=== PATIENT | female | born 1995 | race Caucasian/White ===

== ENCOUNTER 2017-11-16 18:49 | Emergency (ER) | payer BC, MEDICAID ==
[2017-11-16 19:09] VITALS: BP 127/65
[2017-11-16] MEDS ORDERED: Sodium Chloride 0.9% 1,000 ML IV STA (19:42)
[2017-11-16] MEDS ORDERED: Sodium Chloride 0.9% 10 ML Syringe FLUSH PRN (19:42)
[2017-11-16] MEDS ORDERED: Metoclopramide 10 MG/2 ML SDV IVPUSH ONE (19:42)
[2017-11-16] MEDS ORDERED: Sodium Chloride 0.9% 1,000 ML IV ONE (20:51)
--- NOTE | 2017-11-16 22:49 | EDM.PDOC ---
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 She presents with nausea and vomiting. She has been having trouble with vomiting her whole and using zofran but the zofran was giving her migraines. Today it has been much worse. She has no fever, chills, cough, chest pain, shortness of breath, abdominal pain , cramping or bleeding. Her FHT was 159. Her doctor is Dr Calabrese. Onset: Today Duration: Hour(s): Severity: Moderate Improves with: Reports: None Worsens with: Reports: None Associated Symptoms: Reports: Nausea/Vomiting. Denies: Chest Pain, Cough, Fever /Chills, Headaches, Shortness of Breath Headache Pain Score (Numeric/FACES): 10 - Related Data Allergies Allergy/AdvReac Type Severity Reaction Status Date / Time No Known Allergies Allergy Verified 04/11/15 08:31 Home Meds: Home Meds . 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 Denies: Abdominal Pain : Reports: No Symptoms Musculoskeletal: Reports: No Symptoms ED EXAM, GI/ABD - Physical Exam Exam: See Below Exam Limited By: No Limitations General Appearance: Alert, No Apparent Distress Ears: Normal External Exam Nose: Normal Inspection Throat/Mouth: Other (Slightly dry mucus membranes) Head: Atraumatic, Normocephalic Neck: Normal Inspection Respiratory/Chest: No Respiratory Distress, Lungs Clear, Normal Breath Sounds Cardiovascular: Regular Rate, Rhythm, No Edema, No Murmur GI/Abdominal Exam: Soft, Non-Tender, Other (Gravid uterus) Back Exam: Normal Inspection Extremities: Normal Inspection Course - Vital Signs Last Recorded V/S: Last Vital Signs Temp 98.4 F 11/16/17 19:07 Pulse 88 11/16/17 19:07 Resp 20 11/16/17 19:07 BP 127/65 11/16/17 19:07 Pulse Ox 100 11/16/17 19:07 - Orders/Labs/Meds Orders: Active Orders 24 hr Category Date Time Status Peripheral IV Care [RC] . DIRECTED Care 11/16/17 19:43 Active Sodium Chloride 0.9% [Saline Flush] Med 11/16/17 19:42 Active 10 ml FLUSH ASDIRECTED PRN ED Antiemetic Medication Reflex [OM.PC] Stat Oth 11/16/17 19:43 Ordered Peripheral IV Insertion Adult [OM.PC] Stat Oth 11/16/17 19:42 Ordered Medication Orders Sodium Chloride (Saline Flush) 10 ml FLUSH ASDIRECTED PRN PRN Reason: Keep Vein Open Last Admin: 11/16/17 20:10 Dose: 10 ml Labs: Laboratory Tests 11/16/17 11/16/17 11/16/17 Range/Units 19:25 19:25 19:25 WBC 11.52 H (3.98-10.04) K/mm3 RBC 4.33 (3.98-5.22) M/mm3 Hgb 12.9 (11.2-15.7) gm/L Hct 38.3 (34.1-44.9) % MCV 88.5 (79.4-94.8) fl MCH 29.8 (25.6-32.2) pg MCHC 33.7 (32.2-35.5) g/dl RDW Std Deviation 41.5 (36.4-46.3) fL Plt Count 179 L (182-369) K/mm3 MPV 11.4 (9.4-12.3) fl Neut % (Auto) 73.7 H (34.0-71.1) % Lymph % (Auto) 19.4 (19.3-51.7) % Barnes % (Auto) 6.2 (4.7-12.5) % Eos % (Auto) 0.3 L (0.7-5.8) Baso % (Auto) 0.2 (0.1-1.2) % Neut # (Auto) 8.50 H (1.56-6.13) K/mm3 Lymph # (Auto) 2.23 (1.18-3.74) K/mm3 Barnes # (Auto) 0.71 H (0.24-0.36) K/mm3 Eos # (Auto) 0.04 (0.04-0.36) K/mm3 Baso # (Auto) 0.02 (0.01-0.08) K/mm3 Sodium 140 (136-145) mEq/L Potassium 3.6 (3.5-5.1) mEq/L Chloride 103 (98-107) mEq/L Carbon Dioxide 25 (21-32) mEq/L Anion Gap 15.6 H (5-15) BUN 10 (7-18) mg/dL Creatinine 0.8 (0.55-1.02) mg/dL Est Cr Clr Drug Dosing 117.23 mL/min Estimated GFR (MDRD) > 60 (>60) mL/min BUN/Creatinine Ratio 12.5 L (14-18) Glucose 88 (74-106) mg/dL Calcium 9.3 (8.5-10.1) mg/dL Total Bilirubin 0.4 (0.2-1.0) mg/dL AST 13 L (15-37) U/L ALT 9 L (14-59) U/L Alkaline Phosphatase 93 (46-116) U/L Total Protein 7.2 (6.4-8.2) g/dl Albumin 3.1 L (3.4-5.0) g/dl Globulin 4.1 gm/dL Albumin/Globulin Ratio 0.8 L (1-2) Lipase 199 (73-393) U/L Urine Color (Yellow) Urine Appearance (Clear) Urine pH (5.0-8.0) Ur Specific Whitney (1.005-1.030) Urine Protein (Negative) Urine Glucose (UA) (Negative) Urine Ketones (Negative) Urine Occult Blood (Negative) Urine Nitrite (Negative) Urine Bilirubin (Negative) Urine Urobilinogen (0.2-1.0) Ur Leukocyte Esterase (Negative) Urine RBC (0-5) /hpf Urine WBC (0-5) /hpf Ur Epithelial Cells (0-5) /hpf Urine Bacteria (FEW) /hpf Urine Mucus (FEW) /hpf 11/16/17 Range/Units 19:30 WBC (3.98-10.04) K/mm3 RBC (3.98-5.22) M/mm3 Hgb (11.2-15.7) gm/L Hct (34.1-44.9) % MCV (79.4-94.8) fl MCH (25.6-32.2) pg MCHC (32.2-35.5) g/dl RDW Std Deviation (36.4-46.3) fL Plt Count (182-369) K/mm3 MPV (9.4-12.3) fl Neut % (Auto) (34.0-71.1) % Lymph % (Auto) (19.3-51.7) % Barnes % (Auto) (4.7-12.5) % Eos % (Auto) (0.7-5.8) Baso % (Auto) (0.1-1.2) % Neut # (Auto) (1.56-6.13) K/mm3 Lymph # (Auto) (1.18-3.74) K/mm3 Barnes # (Auto) (0.24-0.36) K/mm3 Eos # (Auto) (0.04-0.36) K/mm3 Baso # (Auto) (0.01-0.08) K/mm3 Sodium (136-145) mEq/L Potassium (3.5-5.1) mEq/L Chloride (98-107) mEq/L Carbon Dioxide (21-32) mEq/L Anion Gap (5-15) BUN (7-18) mg/dL Creatinine (0.55-1.02) mg/dL Est Cr Clr Drug Dosing mL/min Estimated GFR (MDRD) (>60) mL/min BUN/Creatinine Ratio (14-18) Glucose (74-106) mg/dL Calcium (8.5-10.1) mg/dL Total Bilirubin (0.2-1.0) mg/dL AST (15-37) U/L ALT (14-59) U/L Alkaline Phosphatase (46-116) U/L Total Protein (6.4-8.2) g/dl Albumin (3.4-5.0) g/dl Globulin gm/dL Albumin/Globulin Ratio (1-2) Lipase (73-393) U/L Urine Color Yellow (Yellow) Urine Appearance Clear (Clear) Urine pH 6.0 (5.0-8.0) Ur Specific Whitney > or = 1.030 (1.005-1.030) Urine Protein 2+ H (Negative) Urine Glucose (UA) Negative (Negative) Urine Ketones 3+ H (Negative) Urine Occult Blood Negative (Negative) Urine Nitrite Negative (Negative) Urine Bilirubin 1+ H (Negative) Urine Urobilinogen 1.0 (0.2-1.0) Ur Leukocyte Esterase Trace H (Negative) Urine RBC 0-5 (0-5) /hpf Urine WBC 0-5 (0-5) /hpf Ur Epithelial Cells 10-20 H (0-5) /hpf Urine Bacteria Moderate H (FEW) /hpf Urine Mucus Many H (FEW) /hpf Meds: Medications Generic Name Dose Route Start Last Admin Trade Name Freq PRN Reason Stop Dose Admin Sodium Chloride 10 ml 11/16/17 19:42 11/16/17 20:10 Saline Flush FLUSH 10 ml ASDIRECTED PRN Administration Keep Vein Open Discontinued Medications Generic Name Dose Route Start Last Admin Trade Name Freq PRN Reason Stop Dose Admin Sodium Chloride 1,000 mls @ 1,000 mls/hr 11/16/17 19:42 11/16/17 20:10 Normal Saline IV 11/16/17 20:41 1,000 mls/hr .BOLUS STA Administration Sodium Chloride 1,000 mls @ 1,000 mls/hr 11/16/17 20:51 11/16/17 21:26 Normal Saline IV 11/16/17 21:50 1,000 mls/hr ONETIME ONE Administration Metoclopramide HCl 10 mg 11/16/17 19:42 11/16/17 20:10 Reglan IVPUSH 11/16/17 19:43 10 mg ONETIME ONE Administration - Re-Assessments/Exams Free Text/Narrative Re-Assessment/Exam: 11/16/17 22:51 I ordered an IV NS 2L bolus, reglan 10mg IV, labs and UA. 11/16/17 22:52 Her WBC was elevated slightly at 11.52. Her anion gap was elevated at 15.6. Her UA showed some protein and ketones but no sign of infection. She feels much better. I will discharge her home with a prescription for the generic dyclegis. Departure - Departure Time of Disposition: 22:55 Disposition: Home, Self-Care 01 Condition: Good Clinical Impression: Qualifiers: Weeks of gestation: 26 weeks Qualified Code(s): Z3A.26 - 26 weeks gestation of Nausea & vomiting Qualifiers: Vomiting type: unspecified Vomiting Intractability: non-intractable Qualified Code(s): R11.2 - Nausea with vomiting, unspecified - Discharge Information Referrals: Sherrie Moore MD [Primary Care Provider] - 1 Week Forms: ED Department Discharge, ED Return to Work/School Form Additional Instructions: Go home and rest. Drink plenty of fluids. Go to [facility] pharmacy and get the medicine prescribed for the nausea and vomiting. Please return if you are worse. - My Orders Last 24 Hours: My Active Orders 11/16/17 19:42 Sodium Chloride 0.9% [Saline Flush] 10 ml FLUSH ASDIRECTED PRN Peripheral IV Insertion Adult [OM.PC] Stat 11/16/17 19:43 Peripheral IV Care [RC] . DIRECTED ED Antiemetic Medication Reflex [OM.PC] Stat - Assessment/Plan Last 24 Hours: My Active Orders 11/16/17 19:42 Sodium Chloride 0.9% [Saline Flush] 10 ml FLUSH ASDIRECTED PRN Peripheral IV Insertion Adult [OM.PC] Stat 11/16/17 19:43 Peripheral IV Care [RC] . DIRECTED ED Antiemetic Medication Reflex [OM.PC] Stat
== END 2017-11-16 23:05 | disposition home or self-care (01) ==
LOC: JD.ED 18:49
DX: O21.9 Vomiting of pregnancy, unspecified (principal); Z3A.26 26 weeks gestation of pregnancy
CPT/HCPCS: 36415; 80053; 81001; 83690; 85025; 96361; 96374; 99284; J2765; J7040; J7050

== ENCOUNTER 2017-11-18 09:26 | Observation (INO) | payer MEDICAID ==
[2017-11-18] MEDS ORDERED: Ondansetron 4 MG Tab.DIS PO PRN (09:53)
[2017-11-18] MEDS ORDERED: Sodium Chloride 0.9% 1,000 ML IV SCH (10:00)
[2017-11-18] MEDS ORDERED: Sodium Chloride 0.9% 500 ML IV ONE (11:12)
[2017-11-18] MEDS ORDERED: Promethazine 25 MG/ML SDV IM SCH (11:15)
[2017-11-18] MEDS ORDERED: POTASSIUM CHLORIDE IV SCH (14:30)
[2017-11-18] MEDS ORDERED: LACTATED RINGERS IV SCH (14:30)
[2017-11-18] MEDS ORDERED: THIAMINE IV SCH (14:30)
[2017-11-18] MEDS ORDERED: Promethazine 25 MG/ML SDV IM ONE (16:35)
--- NOTE | 2017-11-18 18:07 | PCM.SN ---
- Free Text/Narrative Note: Subjective:22 yo G1 at 27 weeks gestation evaluated on labor and delivery for nausea and emesis. recurrent for the last 48 hours, unable to hold food down. Was evaluated in the ER 2 days ago. Labs significant for dehydration. no evidence of infection. no signs of labor. reports normal movement. no leakage of fluid. At time of evaluation pt has received 2 liters of normal saline. 4 mg Zofran ODT and Phenergan 25 mg IM x 1. she has had greater than 2 hours without emesisPt has been able to urinate since arrival on the floor and notes she has the urge to urinate at this time. Objective: Vital signs stable. mucous membranes moist, no skin tenting, normal capillary refill. no lower extremity edema. Labs were reviewed including CBC, BMP, Magneisum, Phosphate and urinalysis. Assessment: 1.hyperemesis gravidarum, 2.hypokalemia 3. hypovolemia Plan:Pt is currently receiving 1 liter of LR with thiamine 100 mg and KCL 20 meq. continue IV hydration for 1-2 more hours. repeat phenergan dose now. If continues with no emesis and continues to have stable vital signs will discharge to home tonight with follow up in the clinic within 48 hours. Phenergan prescription sent to her pharmacy. return to clinic or Labor floor sooner if emesis returns. BRAT diet when hunger returns.
[2017-11-18] MEDS ORDERED: Famotidine 20 MG/2 ML SDV IV PRN (19:29)
[2017-11-18] MEDS ORDERED: Metoclopramide 10 MG/2 ML SDV IVPUSH PRN (19:29)
[2017-11-18] MEDS ORDERED: Ondansetron 4 MG/2 ML SDV IV SCH (19:30)
[2017-11-18] MEDS ORDERED: diphenhydrAMINE 50 MG/ML SDV IVPUSH ONE (19:42)
[2017-11-18] MEDS ORDERED: ONDANSETRON IV SCH (20:00)
[2017-11-18] MEDS ORDERED: SODIUM CHLORIDE 0.9% IV SCH (20:00)
[2017-11-18] MEDS: Dextrose 5%-Lactated Ringers 1,000 ML IV SCH (20:44)
[2017-11-19] MEDS: Dextrose 5%-Lactated Ringers 1,000 ML IV SCH (02:26)
--- NOTE | 2017-11-19 07:30 | PCM.LDHP ---
L&D History of Present Illness - General Date of Service: 11/18/17 Admit Problem/Dx: Patient Status Order with Admit Dx/Problem 11/18/17 09:53 Patient Status [ADT] Routine 11/18/17 19:30 Patient Status [ADT] Routine Admission Diagnosis/Problem Admission Diagnosis/Problem Source of Information: Patient, Family, Provider, RN Notes Reviewed - History of Present Illness Introduction:: 22 year old female at 27w0 here after 3 day course of fairly intractable nausea and vomiting. She was in the ER Friday and had vomited 50-60 times that day. Improved somewhat in terms of frequency of vomiting but did was not able to eat anything. She presented this morning to labor and delivery and initially was improving somewhat after fluid management by Dr. Thacker and IV nausea medication but then began vomiting again. Reports no diarrhea. No decrease in movement or contractions. Improves with: Reports: Rest - Related Data Allergies/Adverse Reactions: Allergies Allergy/AdvReac Type Severity Reaction Status Date / Time No Known Allergies Allergy Verified 04/11/15 08:31 Home Medications: Home Meds . 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 Denies: Abdominal Pain, Anorexia, Diarrhea, Decreased Appetite Genitourinary: Reports: No Symptoms Musculoskeletal: Reports: No Symptoms Skin: Reports: No Symptoms Psychiatric: Reports: No Symptoms Neurological: Reports: No Symptoms Hematologic/Lymphatic: Reports: No Symptoms Immunologic: Reports: No Symptoms L&D Exam - Exam Exam: See Below - Vital Signs Vital Signs: Last Vital Signs Temp 36.6 C 11/18/17 19:30 Pulse 102 H 05/22/18 17:32 Resp 18 11/18/17 09:53 BP 94/42 L 11/18/17 14:00 Pulse Ox Weight: 87.543 kg - OB Specific Movement: Active Heart Tones: Present Presentation: Vertex - Bray Score Bray Score Cervix Position: Midposition Bray Score Consistency: Firm Bray Score Effacement: 0-30% Bray Score Dilation: Closed Bray Score Infant's Station: -3 Bray Score Total: 1 - Exam General: Other (resting comfortably) HEENT: Conjunctiva Clear, EACs Clear, EOMI, Hearing Intact, Mucosa Moist & [place] , Posterior Pharynx Clear, Other (flushed) Neck: Supple, Trachea Midline Lungs: Normal Respiratory Effort Cardiovascular: Regular Rate, Regular Rhythm GI/Abdominal Exam: Normal Bowel Sounds, Soft, Non-Tender, No Organomegaly, No Distention, No Abnormal Bruit, Other (gravid, no fundal tenderness) Rectal Exam: Normal Exam, Normal Rectal Tone Genitourinary: Normal external exam, Normal bimanual exam, Other Extremities: Normal Inspection, Normal Range of Motion, Non-Tender, No Pedal Edema, Normal Capillary Refill Skin: Warm, Dry, Intact, Other (flushed face) Psychiatric: Alert, Normal Affect, Normal Mood - Patient Data Lab Results Last 24 hrs: Laboratory Results - last 24 hr 11/18/17 11/18/17 11/18/17 Range/Units 13:34 13:34 13:34 WBC 11.99 H (3.98-10.04) K/mm3 RBC 3.89 L (3.98-5.22) M/mm3 Hgb 11.7 (11.2-15.7) gm/L Hct 34.8 (34.1-44.9) % MCV 89.5 (79.4-94.8) fl MCH 30.1 (25.6-32.2) pg MCHC 33.6 (32.2-35.5) g/dl RDW Std Deviation 41.4 (36.4-46.3) fL Plt Count 179 L (182-369) K/mm3 MPV 11.2 (9.4-12.3) fl Neut % (Auto) 77.9 H (34.0-71.1) % Lymph % (Auto) 15.3 L (19.3-51.7) % [place] % (Auto) 6.1 (4.7-12.5) % Eos % (Auto) 0.3 L (0.7-5.8) Baso % (Auto) 0.2 (0.1-1.2) % Neut # (Auto) 9.36 H (1.56-6.13) K/mm3 Lymph # (Auto) 1.83 (1.18-3.74) K/mm3 [place] # (Auto) 0.73 H (0.24-0.36) K/mm3 Eos # (Auto) 0.03 L (0.04-0.36) K/mm3 Baso # (Auto) 0.02 (0.01-0.08) K/mm3 Sodium 139 (136-145) mEq/L Potassium 3.3 L (3.5-5.1) mEq/L Chloride 105 (98-107) mEq/L Carbon Dioxide 21 (21-32) mEq/L Anion Gap 16.3 H (5-15) BUN 10 (7-18) mg/dL Creatinine 0.8 (0.55-1.02) mg/dL Est Cr Clr Drug Dosing 117.23 mL/min Estimated GFR (MDRD) > 60 (>60) mL/min BUN/Creatinine Ratio 12.5 L (14-18) Glucose 80 (74-106) mg/dL Calcium 8.7 (8.5-10.1) mg/dL Phosphorus 3.5 (2.6-4.7) mg/dL Magnesium 1.6 L (1.8-2.4) mg/dl Total Bilirubin (0.2-1.0) mg/dL AST (15-37) U/L ALT (14-59) U/L Alkaline Phosphatase (46-116) U/L Total Protein (6.4-8.2) g/dl Albumin (3.4-5.0) g/dl Globulin gm/dL Albumin/Globulin Ratio (1-2) TSH 3rd Generation (0.516-4.13) uIU/mL Urine Color (Yellow) Urine Appearance (Clear) Urine pH (5.0-8.0) Ur Specific Till[place] (1.005-1.030) Urine Protein (Negative) Urine Glucose (UA) (Negative) Urine Ketones (Negative) Urine Occult Blood (Negative) Urine Nitrite (Negative) Urine Bilirubin (Negative) Urine Urobilinogen (0.2-1.0) Ur Leukocyte Esterase (Negative) Urine RBC (0-5) /hpf Urine WBC (0-5) /hpf Ur Epithelial Cells (0-5) /hpf Urine Bacteria (FEW) /hpf Urine Mucus (FEW) /hpf Urine Opiates Screen (NEGATIVE) Ur Buprenorphine Scrn (NEGATIVE) Ur Oxycodone Screen (NEGATIVE) Urine Methadone Screen (NEGATIVE) Ur Propoxyphene Screen (NEGATIVE) Ur Barbiturates Screen (NEGATIVE) Ur Tricyclics Screen (NEGATIVE) Ur Phencyclidine Scrn (NEGATIVE) Ur Amphetamine Screen (NEGATIVE) U Methamphetamines Scrn (NEGATIVE) U Benzodiazepines Scrn (NEGATIVE) U Cocaine Metab Screen (NEGATIVE) U Marijuana (THC) Screen (NEGATIVE) 11/18/17 11/18/17 11/19/17 Range/Units 13:50 13:50 06:10 WBC 7.88 (3.98-10.04) K/mm3 RBC 3.33 L (3.98-5.22) M/mm3 Hgb 10.0 L (11.2-15.7) gm/L Hct 29.7 L (34.1-44.9) % MCV 89.2 (79.4-94.8) fl MCH 30.0 (25.6-32.2) pg MCHC 33.7 (32.2-35.5) g/dl RDW Std Deviation 41.8 (36.4-46.3) fL Plt Count 159 L (182-369) K/mm3 MPV 11.4 (9.4-12.3) fl Neut % (Auto) 53.3 (34.0-71.1) % Lymph % (Auto) 34.6 (19.3-51.7) % [place] % (Auto) 9.0 (4.7-12.5) % Eos % (Auto) 2.4 (0.7-5.8) Baso % (Auto) 0.4 (0.1-1.2) % Neut # (Auto) 4.20 (1.56-6.13) K/mm3 Lymph # (Auto) 2.73 (1.18-3.74) K/mm3 [place] # (Auto) 0.71 H (0.24-0.36) K/mm3 Eos # (Auto) 0.19 (0.04-0.36) K/mm3 Baso # (Auto) 0.03 (0.01-0.08) K/mm3 Sodium (136-145) mEq/L Potassium (3.5-5.1) mEq/L Chloride (98-107) mEq/L Carbon Dioxide (21-32) mEq/L Anion Gap (5-15) BUN (7-18) mg/dL Creatinine (0.55-1.02) mg/dL Est Cr Clr Drug Dosing mL/min Estimated GFR (MDRD) (>60) mL/min BUN/Creatinine Ratio (14-18) Glucose (74-106) mg/dL Calcium (8.5-10.1) mg/dL Phosphorus (2.6-4.7) mg/dL Magnesium (1.8-2.4) mg/dl Total Bilirubin (0.2-1.0) mg/dL AST (15-37) U/L ALT (14-59) U/L Alkaline Phosphatase (46-116) U/L Total Protein (6.4-8.2) g/dl Albumin (3.4-5.0) g/dl Globulin gm/dL Albumin/Globulin Ratio (1-2) TSH 3rd Generation (0.516-4.13) uIU/mL Urine Color Blanca H (Yellow) Urine Appearance Clear (Clear) Urine pH 6.0 (5.0-8.0) Ur Specific [place] > or = 1.030 (1.005-1.030) Urine Protein 1+ H (Negative) Urine Glucose (UA) Negative (Negative) Urine Ketones 3+ H (Negative) Urine Occult Blood Negative (Negative) Urine Nitrite Negative (Negative) Urine Bilirubin 1+ H (Negative) Urine Urobilinogen 1.0 (0.2-1.0) Ur Leukocyte Esterase Negative (Negative) Urine RBC Not seen (0-5) /hpf Urine WBC 0-5 (0-5) /hpf Ur Epithelial Cells 0-5 (0-5) /hpf Urine Bacteria Rare (FEW) /hpf Urine Mucus Not seen (FEW) /hpf Urine Opiates Screen Negative (NEGATIVE) Ur Buprenorphine Scrn Negative (NEGATIVE) Ur Oxycodone Screen Negative (NEGATIVE) Urine Methadone Screen Negative (NEGATIVE) Ur Propoxyphene Screen Negative (NEGATIVE) Ur Barbiturates Screen Negative (NEGATIVE) Ur Tricyclics Screen Negative (NEGATIVE) Ur Phencyclidine Scrn Negative (NEGATIVE) Ur Amphetamine Screen Negative (NEGATIVE) U Methamphetamines Scrn Negative (NEGATIVE) U Benzodiazepines Scrn Negative (NEGATIVE) U Cocaine Metab Screen Negative (NEGATIVE) U Marijuana (THC) Screen Negative (NEGATIVE) 11/19/17 Range/Units 06:10 WBC (3.98-10.04) K/mm3 RBC (3.98-5.22) M/mm3 Hgb (11.2-15.7) gm/L Hct (34.1-44.9) % MCV (79.4-94.8) fl MCH (25.6-32.2) pg MCHC (32.2-35.5) g/dl RDW Std Deviation (36.4-46.3) fL Plt Count (182-369) K/mm3 MPV (9.4-12.3) fl Neut % (Auto) (34.0-71.1) % Lymph % (Auto) (19.3-51.7) % [place] % (Auto) (4.7-12.5) % Eos % (Auto) (0.7-5.8) Baso % (Auto) (0.1-1.2) % Neut # (Auto) (1.56-6.13) K/mm3 Lymph # (Auto) (1.18-3.74) K/mm3 [place] # (Auto) (0.24-0.36) K/mm3 Eos # (Auto) (0.04-0.36) K/mm3 Baso # (Auto) (0.01-0.08) K/mm3 Sodium 137 (136-145) mEq/L Potassium 3.1 L (3.5-5.1) mEq/L Chloride 107 (98-107) mEq/L Carbon Dioxide 24 (21-32) mEq/L Anion Gap 9.1 (5-15) BUN 7 (7-18) mg/dL Creatinine 0.7 (0.55-1.02) mg/dL Est Cr Clr Drug Dosing 133.98 mL/min Estimated GFR (MDRD) > 60 (>60) mL/min BUN/Creatinine Ratio 10.0 L (14-18) Glucose 138 H (74-106) mg/dL Calcium 7.7 L (8.5-10.1) mg/dL Phosphorus (2.6-4.7) mg/dL Magnesium (1.8-2.4) mg/dl Total Bilirubin 0.4 (0.2-1.0) mg/dL AST 12 L (15-37) U/L ALT 18 (14-59) U/L Alkaline Phosphatase 64 (46-116) U/L Total Protein 4.9 L (6.4-8.2) g/dl Albumin 2.1 L (3.4-5.0) g/dl Globulin 2.8 gm/dL Albumin/Globulin Ratio 0.8 L (1-2) TSH 3rd Generation 2.959 (0.516-4.13) uIU/mL Urine Color (Yellow) Urine Appearance (Clear) Urine pH (5.0-8.0) Ur Specific [place] (1.005-1.030) Urine Protein (Negative) Urine Glucose (UA) (Negative) Urine Ketones (Negative) Urine Occult Blood (Negative) Urine Nitrite (Negative) Urine Bilirubin (Negative) Urine Urobilinogen (0.2-1.0) Ur Leukocyte Esterase (Negative) Urine RBC (0-5) /hpf Urine WBC (0-5) /hpf Ur Epithelial Cells (0-5) /hpf Urine Bacteria (FEW) /hpf Urine Mucus (FEW) /hpf Urine Opiates Screen (NEGATIVE) Ur Buprenorphine Scrn (NEGATIVE) Ur Oxycodone Screen (NEGATIVE) Urine Methadone Screen (NEGATIVE) Ur Propoxyphene Screen (NEGATIVE) Ur Barbiturates Screen (NEGATIVE) Ur Tricyclics Screen (NEGATIVE) Ur Phencyclidine Scrn (NEGATIVE) Ur Amphetamine Screen (NEGATIVE) U Methamphetamines Scrn (NEGATIVE) U Benzodiazepines Scrn (NEGATIVE) U Cocaine Metab Screen (NEGATIVE) U Marijuana (THC) Screen (NEGATIVE) Result Diagrams: 11/19/17 06:10 11/19/17 06:10 Problem List Initiated/Reviewed/Updated: Yes Orders Last 24hrs: Active Orders 24 hr Category Date Time Status Patient Status [ADT] Routine ADT 11/18/17 09:53 Active Patient Status [ADT] Routine ADT 11/18/17 19:30 Active Intake and Output [RC] Q2H Care 11/18/17 19:30 Active Notify Provider [RC] PRN Care 11/18/17 19:30 Active Up ad Erin [RC] ASDIRECTED Care 11/18/17 19:29 Active Vital Signs [RC] PER UNIT ROUTINE Care 11/18/17 09:53 Active Vital Signs [RC] PER UNIT ROUTINE Care 11/18/17 19:30 Active Regular Diet [DIET] Diet 11/18/17 Dinner Active DRUG SCREEN, URINE [URCHEM] Routine Lab 11/18/17 13:50 Ordered UA W/MICROSCOPIC [URIN] Routine Lab 11/18/17 13:50 Ordered Dextrose 5%-Lactated Ringers 1,000 ml Med 11/18/17 19:30 Active IV ASDIRECTED Famotidine [Pepcid] Med 11/18/17 19:29 Active 20 mg IV Q12H PRN Metoclopramide [Reglan] Med 11/18/17 19:29 Active 5 mg IVPUSH Q6H PRN Ondansetron [Zofran ODT] Med 11/18/17 09:53 Active 4 mg PO Q4H PRN Ondansetron [Zofran] 10 mg Med 11/18/17 20:00 Active Sodium Chloride 0.9% [Normal Saline] 495 ml IV ASDIRECTED Potassium Chloride 20 meq Med 11/18/17 14:30 Active Thiamine [Vitamin B-1] 100 mg Lactated Ringers [Ringers, Lactated] 1,000 ml IV ASDIRECTED Promethazine [Phenergan] Med 11/18/17 11:15 Active 25 mg IM .ONETIME Resuscitation Status Routine Resus Stat 11/18/17 09:53 Ordered Medication Orders Famotidine (Pepcid) 20 mg IV Q12H PRN PRN Reason: Heartburn Potassium Chloride 20 meq/Thiamine HCl 100 mg/ Lactated Ringer's 1,011 mls @ 250 mls/hr IV ASDIRECTED [facility] Last Admin: 11/18/17 14:48 Dose: 250 mls/hr Dextrose/Lactated Ringer's (Dextrose 5%-Lactated Ringers) 1,000 mls @ 125 mls/ hr IV ASDIRECTED [facility] Last Admin: 11/19/17 02:26 Dose: 125 mls/hr Infusion: 11/19/17 02:26 Dose: 125 mls/hr Admin: 11/18/17 20:44 Dose: 125 mls/hr Ondansetron HCl 10 mg/ Sodium (Chloride) 500 mls @ 50 mls/hr IV ASDIRECTED [facility] Last Admin: 11/18/17 20:37 Dose: 50 mls/hr Metoclopramide HCl (Reglan) 5 mg IVPUSH Q6H PRN PRN Reason: Nausea/Vomiting Ondansetron HCl (Zofran Odt) 4 mg PO Q4H PRN PRN Reason: Nausea/Vomiting Last Admin: 11/18/17 10:20 Dose: 4 mg Promethazine HCl (Phenergan) 25 mg IM .ONETIME [facility] Last Admin: 11/18/17 11:37 Dose: 25 mg Assessment/Plan Comment:: Intractable nausea and vomiting. Improving somewhat in the last 20-30 minutes or so with rest. Still not able to tolerate po's. Plan: FEN: Do not encourage PO intake but she is free to eat/drink if it seems to her she would do ok with it. Recheck electrolytes in the morning. IV fluids to continue over night. GI: Zofran drip 1mg/hr. Pharmacy contacted to discuss mixing. Reglan prn. Benadryl for sleep and nausea at hs. Pepcid IV now. Hope move toward discharge tomorrow if increased ability to tolerate po's.
[2017-11-19] MEDS ORDERED: Lactated Ringers 1,000 ML ONE (07:57)
[2017-11-19] MEDS: Potassium Chloride 10 MEQ in Premix Bag 1 BAG IV SCH ×6 (08:14→14:05)
[2017-11-19] MEDS ORDERED: Lactated Ringers 1,000 ML IV SCH (08:15)
[2017-11-19 11:58] VITALS: BP 91/48
--- NOTE | 2017-11-25 06:24 | PCM.DCSUM1 ---
Discharge Summary - Hospital Course Brief History: Admitted with intractable nausea and vomiting - Discharge Data Discharge Date: 11/19/17 Discharge Disposition: Home, Self-Care 01 Condition: Good - Patient Summary/Data Hospital Course: Zofran drip and benadryl over night. Rested well. Awoke feeling better and gradually able to tolerate po's. - Patient Instructions Diet: Regular Diet as Tolerated Activity: As Tolerated Activity, Other: follow up in clinic next week Driving: May Drive Today Showering/Bathing: May Shower Notify Provider of: Fever, Increased Pain, Nausea and/or Vomiting - Discharge Plan Home Medications: Home Meds . [No Known Home Meds] 04/11/15 [History] Patient Handouts: Third Trimester of , [id number], Eating Plan for Hyperemesis Gravidarum, Hyperemesis Gravidarum, Second Trimester of , [id number] Referrals: Sherrie Moore MD [Primary Care Provider] - - Discharge Summary/Plan Comment DC Time >30 min.: No - General Info Date of Service: 11/19/17 Functional Status: Reports: Pain Controlled - Review of Systems General: Reports: No Symptoms HEENT: Reports: No Symptoms Pulmonary: Reports: No Symptoms Cardiovascular: Reports: No Symptoms Gastrointestinal: Reports: No Symptoms Genitourinary: Reports: No Symptoms Musculoskeletal: Reports: No Symptoms Skin: Reports: No Symptoms Neurological: Reports: No Symptoms Psychiatric: Reports: No Symptoms - Patient Data Vitals - Most Recent: Last Vital Signs Temp 36.2 C 11/19/17 11:56 Pulse 74 11/19/17 11:56 Resp 18 11/19/17 11:56 BP 91/48 L 11/19/17 11:56 Pulse Ox 100 11/19/17 11:56 Weight - Most Recent: 87.543 kg Med Orders - Current: Current Medications Discontinued Medications Diphenhydramine HCl (Benadryl) 50 mg IVPUSH ONETIME ONE Stop: 11/18/17 19:43 Last Admin: 11/18/17 20:16 Dose: 50 mg Famotidine (Pepcid) 20 mg IV Q12H PRN PRN Reason: Heartburn Sodium Chloride (Normal Saline) 1,000 mls @ 999 mls/hr IV .BOLUS PRERNA Stop: 11/18/17 12:00 Last Admin: 11/18/17 10:20 Dose: 999 mls/hr Sodium Chloride (Normal Saline) 500 mls @ 500 mls/hr IV .BOLUS ONE Stop: 11/18/17 12:11 Last Admin: 11/18/17 11:37 Dose: 500 mls/hr Potassium Chloride 20 meq/Thiamine HCl 100 mg/ Lactated Ringer's 1,011 mls @ 250 mls/hr IV ASDIRECTED [facility] Last Admin: 11/18/17 14:48 Dose: 250 mls/hr Dextrose/Lactated Ringer's (Dextrose 5%-Lactated Ringers) 1,000 mls @ 125 mls/ hr IV ASDIRECTED [facility] Last Admin: 11/19/17 02:26 Dose: 125 mls/hr Ondansetron HCl 10 mg/ Sodium (Chloride) 500 mls @ 50 mls/hr IV ASDIRECTED [facility] Last Admin: 11/18/17 20:37 Dose: 50 mls/hr Potassium Chloride 10 meq/ (Premix) 100 mls @ 100 mls/hr IV Q1H PRERNA Stop: 11/19/17 13:59 Last Admin: 11/19/17 14:05 Dose: 100 mls/hr Lactated Ringer's (Ringers, Lactated) Confirm Administered Dose 1,000 mls @ as directed .ROUTE .STK-MED ONE Stop: 11/19/17 07:58 Last Admin: 11/19/17 08:26 Dose: Not Given Lactated Ringer's (Ringers, Lactated) 1,000 mls @ 150 mls/hr IV ASDIRECTED [facility] Last Admin: 11/19/17 08:22 Dose: 150 mls/hr Metoclopramide HCl (Reglan) 5 mg IVPUSH Q6H PRN PRN Reason: Nausea/Vomiting Ondansetron HCl (Zofran Odt) 4 mg PO Q4H PRN PRN Reason: Nausea/Vomiting Last Admin: 11/18/17 10:20 Dose: 4 mg Potassium Chloride (Pharmacy To Dose - Potassium Replacement) 0 dose .XX ASDIRECTED PRN PRN Reason: RX TO WATCH K LEVELS Promethazine HCl (Phenergan) 25 mg IM .ONETIME [facility] Last Admin: 11/18/17 11:37 Dose: 25 mg Promethazine HCl (Phenergan) 25 mg IM ONETIME ONE Stop: 11/18/17 16:36 Last Admin: 11/18/17 16:48 Dose: 25 mg - Exam General: Reports: Alert, Oriented HEENT: Reports: Pupils Equal, Pupils Reactive, EOMI, Mucous Membr. Moist/[place] Neck: Reports: Supple Lungs: Reports: Clear to Auscultation, Normal Respiratory Effort Cardiovascular: Reports: Regular Rate, Regular Rhythm GI/Abdominal Exam: Normal Bowel Sounds, Soft, Non-Tender, No Organomegaly, No Distention, No Abnormal Bruit, No Mass, Pelvis Stable, Other (soft, non-tender) (Female) Exam: Normal External Exam, Normal Bimanual Exam, Other (cervix closed) Back Exam: Reports: Normal Inspection, Full Range of Motion Extremities: Normal Inspection, Normal Range of Motion, Non-Tender, No Pedal Edema, Normal Capillary Refill Skin: Reports: Warm, Dry, Intact Wound/Incisions: Reports: Healing Well Neurological: Reports: No New Focal Deficit Psy/Mental Status: Reports: Alert, Normal Affect, Normal Mood
== END 2017-11-19 15:22 | disposition home or self-care (01) ==
LOC: JD.OB 09:26 → JD.OBCHECK 09:26 → JD.OB 19:30 → JD.OBCHECK 19:30 → JD.OB 19:31
PROVIDERS: ADMIT Obstetrics & Gynecology; ATTEND Obstetrics & Gynecology
DX: O21.0 Mild hyperemesis gravidarum (principal); E86.0 Dehydration; E87.6 Hypokalemia; E86.1 Hypovolemia; Z3A.27 27 weeks gestation of pregnancy
CPT/HCPCS: 36415; 80048; 80053; 80306; 81001; 83735; 84100; 84443; 85025; 96360; 96361; 96365; 96366; 96372; 96374; 96375; A9270; G0378; J1200; J2405; J2550; J3411; J3480; J7040; J7042; J7120

== ENCOUNTER 2018-02-15 18:38 | Inpatient (IN) | payer OTHER, MEDICAID ==
[2018-02-15] MEDS ORDERED: Ondansetron 4 MG/2 ML SDV IVPUSH PRN ×2 (19:06→19:53)
[2018-02-15] MEDS ORDERED: Nalbuphine 20 MG/ML 1 ML Syringe IVPUSH PRN (19:06)
[2018-02-15] MEDS ORDERED: Sodium Chloride 0.9% 10 ML Syringe FLUSH PRN (19:06)
[2018-02-15] MEDS ORDERED: Oxytocin/Lactated Ringers 10 UNIT/1,000 ML BAG IV SCH (19:15)
--- NOTE | 2018-02-15 19:30 | PCM.LDHP ---
L&D History of Present Illness - General Date of Service: 02/15/18 Admit Problem/Dx: Patient Status Order with Admit Dx/Problem 02/15/18 19:09 Patient Status [ADT] Routine Admission Diagnosis/Problem Admission Diagnosis/Problem Source of Information: Patient History Limitations: Reports: No Limitations - History of Present Illness Introduction:: 22 year old at 39w5 here in active labor. PNC with Dr. Akers complicated only by hyperemesis. 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 Social & Family History - Caffeine Use Caffeine Use: Reports: Soda H&P Review of Systems - Review of Systems: Review Of Systems: See Below General: Reports: No Symptoms HEENT: Reports: No Symptoms Pulmonary: Reports: No Symptoms Cardiovascular: Reports: No Symptoms Gastrointestinal: Reports: No Symptoms Genitourinary: Reports: No Symptoms Musculoskeletal: Reports: No Symptoms Skin: Reports: No Symptoms Psychiatric: Reports: No Symptoms Neurological: Reports: No Symptoms Hematologic/Lymphatic: Reports: No Symptoms Immunologic: Reports: No Symptoms L&D Exam - Exam Exam: See Below - Vital Signs Vital Signs: Last Vital Signs Temp 37.5 C 02/15/18 18:52 Pulse 90 02/15/18 18:52 Resp 18 02/15/18 18:52 BP 130/74 02/15/18 18:52 Pulse Ox Weight: 100.788 kg - OB Specific Contraction Intensity: Moderate to Strong Movement: Active Heart Tones: Present Heart Rate (FHR) Variability: Moderate (6-25 bmp) Presentation: Vertex - Bray Score Bray Score Cervix Position: Anterior Bray Score Consistency: Soft Bray Score Effacement: >80% Bray Score Dilation: 3-4 cm Bray Score 's Station: -1 ,0 Bray Score Total: 11 - Exam General: Alert, Oriented HEENT: PERRLA, Conjunctiva Clear, EACs Clear, EOMI, Hearing Intact, Mucosa Moist & [place], Nares Patent, Normal Nasal Septum, Posterior Pharynx Clear, TMs Clear Neck: Supple, Trachea Midline Lungs: Clear to Auscultation, Normal Respiratory Effort Cardiovascular: Regular Rate, Regular Rhythm GI/Abdominal Exam: Normal Bowel Sounds, Soft, Non-Tender, No Organomegaly, No Distention, No Abnormal Bruit, No Mass, Pelvis Stable Back Exam: Normal Inspection, Full Range of Motion Extremities: Normal Inspection, Normal Range of Motion, Non-Tender, No Pedal Edema, Normal Capillary Refill Skin: Warm, Dry, Intact Neurological: Cranial Nerves Intact, Reflexes Equal Bilateral Psychiatric: Alert, Normal Affect, Normal Mood Problem List Initiated/Reviewed/Updated: Yes Orders Last 24hrs: Active Orders 24 hr Category Date Time Status Patient Status [ADT] Routine ADT 02/15/18 19:09 Active Activity as Tolerated [RC] PFP Care 02/15/18 19:09 Active Communication Order [RC] ASDIRECTED Care 02/15/18 19:09 Active Heart Tones [RC] ASDIRECTED Care 02/15/18 19:10 Active Non Stress Test [RC] PER UNIT ROUTINE Care 02/15/18 19:09 Active Notify Provider [RC] PFP Care 02/15/18 19:09 Active Notify Provider [RC] PRN Care 02/15/18 19:09 Active Peripheral IV Care [RC] . DIRECTED Care 02/15/18 19:10 Active Vital Signs [RC] PER UNIT ROUTINE Care 02/15/18 19:09 Active Regular Diet [DIET] Diet 02/15/18 Breakfast Active CBC WITH AUTO DIFF [HEME] Stat Lab 02/15/18 19:24 Received RAPID PLASMA REAGIN,RPR [CHEM] Routine Lab 02/15/18 19:24 Received Lactated Ringers [Ringers, Lactated] 1,000 ml Med 02/15/18 19:15 Active IV ASDIRECTED Nalbuphine [Nubain] Med 02/15/18 19:06 Active 10 mg IVPUSH Q2H PRN Ondansetron [Zofran] Med 02/15/18 19:06 Active 4 mg IVPUSH Q4H PRN Oxytocin/Lactated Ringers [Pitocin in LR 10 Units/1,000 Med 02/15/18 19:15 Active ML] 10 unit in 1,000 ml IV .CONTINUOUS Sodium Chloride 0.9% [Saline Flush] Med 02/15/18 19:06 Active 10 ml FLUSH ASDIRECTED PRN Electronic Heart Tones Ext w TOCO [WOMSER] Oth 02/15/18 19:09 Ordered Routine Electronic Heart Tones Internal [WOMSER] Per Unit Ot 02/15/18 19:09 Ordered Routine Peripheral IV Insertion Adult [OM.PC] Routine Ot 02/15/18 19:09 Ordered Resuscitation Status Routine Resus Stat 02/15/18 19:06 Ordered Medication Orders Lactated Ringer's (Ringers, Lactated) 1,000 mls @ 100 mls/hr IV ASDIRECTED PRERNA Oxytocin/Lactated Ringer's (Pitocin In Lr 10 Units/1,000 Ml) 10 unit in 1,000 mls @ 500 mls/hr IV .CONTINUOUS PRERNA Nalbuphine HCl (Nubain) 10 mg IVPUSH Q2H PRN PRN Reason: pain Ondansetron HCl (Zofran) 4 mg IVPUSH Q4H PRN PRN Reason: Nausea/Vomiting Sodium Chloride (Saline Flush) 10 ml FLUSH ASDIRECTED PRN PRN Reason: Keep Vein Open Assessment/Plan Comment:: Term labor. Desires epidural now. CBC, IVF, type and hold. Anticipate unless otherwise indicated.
[2018-02-15] MEDS: Lactated Ringers 1,000 ML IV SCH ×3 (19:32→20:56)
[2018-02-15] MEDS ORDERED: fentaNYL 100 MCG/2 ML SDV EPIDUR PRN (19:53)
[2018-02-15] MEDS ORDERED: diphenhydrAMINE 50 MG/ML SDV IVPUSH PRN (19:53)
[2018-02-15] MEDS ORDERED: ePHEDrine 50 MG/ML SDV IVPUSH PRN (19:53)
[2018-02-15] MEDS: Bupivacaine/fentaNYL/NS 100 ML Bag EPIDUR SCH (20:27)
--- NOTE | 2018-02-15 20:31 | PCM.PREANE ---
Preanesthetic Assessment - Procedure Proposed Procedure: Epidural - Anesthesia/Transfusion/Family Hx Anesthesia History: Prior Anesthesia Without Reaction Transfusion History: No Prior Transfusion(s) - Review of Systems General: No Symptoms Pulmonary: No Symptoms Cardiovascular: No Symptoms Gastrointestinal: No Symptoms Neurological: No Symptoms Other: Reports: None - Physical Assessment Pulse: 97 O2 Sat by Pulse Oximetry: 98 Respiratory Rate: 18 Blood Pressure: 108/54 Temperature: 36.3 C Vital Signs: Last Vital Signs Temp 37.5 C 02/15/18 18:52 Pulse 90 02/15/18 18:52 Resp 18 02/15/18 18:52 BP 130/74 02/15/18 18:52 Pulse Ox Height: 1.73 m Weight: 100.788 kg ASA Class: 2 Mental Status: Alert & Oriented x3 Airway Class: Mallampati = 1 Dentition: Reports: Normal Dentition Thyro-Mental Finger Breadths: 3 Mouth Opening Finger Breadths: 3 ROM/Head Extension: Full Lungs: Clear to Auscultation, Normal Respiratory Effort Cardiovascular: Regular Rate, Regular Rhythm - Lab Values: Laboratory Last Values WBC 12.12 K/mm3 (3.98-10.04) H 02/15/18 19:24 RBC 4.02 M/mm3 (3.98-5.22) 02/15/18 19:24 Hgb 11.1 gm/L (11.2-15.7) L 02/15/18 19:24 Hct 33.7 % (34.1-44.9) L 02/15/18 19:24 MCV 83.8 fl (79.4-94.8) 02/15/18 19:24 MCH 27.6 pg (25.6-32.2) 02/15/18 19:24 MCHC 32.9 g/dl (32.2-35.5) 02/15/18 19:24 RDW Std Deviation 40.3 fL (36.4-46.3) 02/15/18 19:24 Plt Count 240 K/mm3 (182-369) 02/15/18 19:24 MPV 11.2 fl (9.4-12.3) 02/15/18 19:24 Neut % (Auto) 65.1 % (34.0-71.1) 02/15/18 19:24 Lymph % (Auto) 24.4 % (19.3-51.7) 02/15/18 19:24 [place] % (Auto) 9.2 % (4.7-12.5) 02/15/18 19:24 Eos % (Auto) 0.9 (0.7-5.8) 02/15/18 19:24 Baso % (Auto) 0.2 % (0.1-1.2) 02/15/18 19:24 Neut # (Auto) 7.89 K/mm3 (1.56-6.13) H 02/15/18 19:24 Lymph # (Auto) 2.96 K/mm3 (1.18-3.74) 02/15/18 19:24 [place] # (Auto) 1.11 K/mm3 (0.24-0.36) H 02/15/18 19:24 Eos # (Auto) 0.11 K/mm3 (0.04-0.36) 02/15/18 19:24 Baso # (Auto) 0.03 K/mm3 (0.01-0.08) 02/15/18 19:24 - Allergies Allergies/Adverse Reactions: Allergies Allergy/AdvReac Type Severity Reaction Status Date / Time No Known Allergies Allergy Verified 02/15/18 18:52 - Acknowledgements Anesthesia Type Planned: Epidural Pt an Appropriate Candidate for the Planned Anesthesia: Yes Alternatives and Risks of Anesthesia Discussed w Pt/Guardian: Yes Pt/Guardian Understands and Agrees with Anesthesia Plan: Yes PreAnesthesia Questionnaire Gastrointestinal History: Reports: Other (See Below) - Past Surgical History HEENT Surgical History: Reports: Adenoidectomy, Tonsillectomy Other HEENT Surgeries/Procedures: Addenoidectomy Other Musculoskeletal Surgeries/Procedures:: 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 - HOME MEDS Home Medications: Home Meds Promethazine [Phenergan] 25 mg PO Q6H PRN 01/03/18 [History] - CURRENT (IN HOUSE) MEDS Current Meds: Current Medications Diphenhydramine HCl (Benadryl) 25 mg IVPUSH Q6H PRN PRN Reason: Pruritis Ephedrine Sulfate (Ephedrine Sulfate) 5 mg IVPUSH ASDIRECTED PRN PRN Reason: Hypotension Fentanyl (Sublimaze) 100 mcg EPIDUR ONETIME PRN PRN Reason: Pain Last Admin: 02/15/18 20:27 Dose: 100 mcg Fentanyl/Bupivacaine HCl (Fentanyl/Bupivacaine/Ns 2 Mcg-0.125% 100 Ml) 100 ml EPIDUR ASDIRECTED [facility] Last Admin: 02/15/18 20:27 Dose: 100 ml Lactated Ringer's (Ringers, Lactated) 1,000 mls @ 100 mls/hr IV ASDIRECTED [facility] Last Admin: 02/15/18 19:32 Dose: 100 mls/hr Oxytocin/Lactated Ringer's (Pitocin In Lr 10 Units/1,000 Ml) 10 unit in 1,000 mls @ 500 mls/hr IV .CONTINUOUS [facility] Nalbuphine HCl (Nubain) 10 mg IVPUSH Q2H PRN PRN Reason: pain Last Admin: 02/15/18 19:33 Dose: 10 mg Ondansetron HCl (Zofran) 4 mg IVPUSH Q4H PRN PRN Reason: Nausea/Vomiting Ondansetron HCl (Zofran) 4 mg IVPUSH ONETIME PRN PRN Reason: Nausea/Vomiting Sodium Chloride (Saline Flush) 10 ml FLUSH ASDIRECTED PRN PRN Reason: Keep Vein Open
[2018-02-15] MEDS ORDERED: Bupivacaine 0.25% 10 ML SDV ONE (22:00)
[2018-02-15] MEDS ORDERED: ePHEDrine 50 MG/ML SDV ONE (22:00)
[2018-02-16] MEDS ORDERED: Acetaminophen 325 MG Tab PO PRN (04:14)
[2018-02-16] MEDS: Bupivacaine/fentaNYL/NS 100 ML Bag EPIDUR SCH (05:10)
--- NOTE | 2018-02-16 07:26 | PCM.DEL ---
L & D Note - General Info Date of Service: 02/16/18 - Delivery Note Labor: Spontaneous Delivery Outcome: Livebirth Presentation: Vertex Nuchal Cord: None Prep: Povidone-Iodine (Betadine Anesthesia Type: Epidural Laceration: 1st Degree Suture type: Vicryl Suture size: 3-0 Placenta: Intact, Spontaneous Cord: 3 Vessels Resuscitation Needed: No Score 1 min: 8 Score 5 min: 9 Delivery Comments (Free Text/Narrative):: of viable male. Weight 3440g. 8/9 APGARS at 0659. - General Info Date of Service: 02/16/18 Functional Status: Reports: Pain Controlled - Review of Systems General: Reports: No Symptoms HEENT: Reports: No Symptoms Pulmonary: Reports: No Symptoms Cardiovascular: Reports: No Symptoms Gastrointestinal: Reports: No Symptoms Genitourinary: Reports: No Symptoms Musculoskeletal: Reports: No Symptoms Skin: Reports: No Symptoms Neurological: Reports: No Symptoms Psychiatric: Reports: No Symptoms - Patient Data Vitals - Most Recent: Last Vital Signs Temp 36.3 C 02/15/18 20:31 Pulse 97 02/15/18 20:31 Resp 18 02/15/18 20:31 BP 108/54 L 02/15/18 20:31 Pulse Ox 98 02/15/18 20:31 Weight - Most Recent: 100.788 kg I&O - Last 24 Hours: Intake & Output 02/15/18 02/16/18 02/16/18 22:59 06:59 14:59 Intake Total 1999 Balance 1999 Lab Results Last 24 Hours: Laboratory Results - last 24 hr 02/15/18 Range/Units 19:24 WBC 12.12 H (3.98-10.04) K/mm3 RBC 4.02 (3.98-5.22) M/mm3 Hgb 11.1 L (11.2-15.7) gm/L Hct 33.7 L (34.1-44.9) % MCV 83.8 (79.4-94.8) fl MCH 27.6 (25.6-32.2) pg MCHC 32.9 (32.2-35.5) g/dl RDW Std Deviation 40.3 (36.4-46.3) fL Plt Count 240 (182-369) K/mm3 MPV 11.2 (9.4-12.3) fl Neut % (Auto) 65.1 (34.0-71.1) % Lymph % (Auto) 24.4 (19.3-51.7) % [place] % (Auto) 9.2 (4.7-12.5) % Eos % (Auto) 0.9 (0.7-5.8) Baso % (Auto) 0.2 (0.1-1.2) % Neut # (Auto) 7.89 H (1.56-6.13) K/mm3 Lymph # (Auto) 2.96 (1.18-3.74) K/mm3 [place] # (Auto) 1.11 H (0.24-0.36) K/mm3 Eos # (Auto) 0.11 (0.04-0.36) K/mm3 Baso # (Auto) 0.03 (0.01-0.08) K/mm3 Med Orders - Current: Current Medications Acetaminophen (Tylenol) 650 mg PO Q4H PRN PRN Reason: Headache Last Admin: 02/16/18 04:15 Dose: 650 mg Diphenhydramine HCl (Benadryl) 25 mg IVPUSH Q6H PRN PRN Reason: Pruritis Ephedrine Sulfate (Ephedrine Sulfate) 5 mg IVPUSH ASDIRECTED PRN PRN Reason: Hypotension Fentanyl (Sublimaze) 100 mcg EPIDUR ONETIME PRN PRN Reason: Pain Last Admin: 02/15/18 20:27 Dose: 100 mcg Fentanyl/Bupivacaine HCl (Fentanyl/Bupivacaine/Ns 2 Mcg-0.125% 100 Ml) 100 ml EPIDUR ASDIRECTED PRERNA Last Admin: 02/16/18 05:10 Dose: 100 ml Lactated Ringer's (Ringers, Lactated) 1,000 mls @ 100 mls/hr IV ASDIRECTED PRERNA Last Admin: 02/15/18 20:56 Dose: 100 mls/hr Oxytocin/Lactated Ringer's (Pitocin In Lr 10 Units/1,000 Ml) 10 unit in 1,000 mls @ 500 mls/hr IV .CONTINUOUS PRERNA Nalbuphine HCl (Nubain) 10 mg IVPUSH Q2H PRN PRN Reason: pain Last Admin: 02/15/18 19:33 Dose: 10 mg Ondansetron HCl (Zofran) 4 mg IVPUSH Q4H PRN PRN Reason: Nausea/Vomiting Last Admin: 02/15/18 23:54 Dose: 4 mg Ondansetron HCl (Zofran) 4 mg IVPUSH ONETIME PRN PRN Reason: Nausea/Vomiting Sodium Chloride (Saline Flush) 10 ml FLUSH ASDIRECTED PRN PRN Reason: Keep Vein Open - Exam General: Alert, Oriented HEENT: Pupils Equal, Pupils Reactive, EOMI, Mucous Membr. Moist/[place] Neck: Supple Lungs: Clear to Auscultation, Normal Respiratory Effort Cardiovascular: Regular Rate, Regular Rhythm GI/Abdominal Exam: Normal Bowel Sounds, Soft, Non-Tender, No Organomegaly, No Distention, No Abnormal Bruit, No Mass, Pelvis Stable Back Exam: Normal Inspection, Full Range of Motion Extremities: Normal Inspection, Normal Range of Motion, Non-Tender, No Pedal Edema, Normal Capillary Refill Skin: Warm, Dry, Intact Wound/Incisions: Healing Well Neurological: No New Focal Deficit Psy/Mental Status: Alert, Normal Affect, Normal Mood - Problem List Review Problem List Initiated/Reviewed/Updated: Yes - My Orders Last 24 Hours: My Active Orders 02/15/18 19:06 Nalbuphine [Nubain] 10 mg IVPUSH Q2H PRN Ondansetron [Zofran] 4 mg IVPUSH Q4H PRN Sodium Chloride 0.9% [Saline Flush] 10 ml FLUSH ASDIRECTED PRN Resuscitation Status Routine 02/15/18 19:09 Patient Status [ADT] Routine Activity as Tolerated [RC] PFP Communication Order [RC] ASDIRECTED Non Stress Test [RC] PER UNIT ROUTINE Notify Provider [RC] PFP Notify Provider [RC] PRN Vital Signs [RC] PER UNIT ROUTINE Electronic Heart Tones Ext w TOCO [WOMSER] Routine Electronic Heart Tones Internal [WOMSER] Per Unit Routine Peripheral IV Insertion Adult [OM.PC] Routine 02/15/18 19:10 Heart Tones [RC] ASDIRECTED Peripheral IV Care [RC] . DIRECTED 02/15/18 19:15 Lactated Ringers [Ringers, Lactated] 1,000 ml IV ASDIRECTED Oxytocin/Lactated Ringers [Pitocin in LR 10 Units/1,000 ML] 10 unit in 1,000 ml IV .CONTINUOUS 02/15/18 19:24 RAPID PLASMA REAGIN,RPR [CHEM] Routine 02/15/18 23:04 Urinary Catheter Assessment [RC] ASDIRECTED 02/15/18 23:15 Insert Urinary Catheter [OM.PC] Q24H 02/15/18 Breakfast Regular Diet [DIET] 02/16/18 04:14 Acetaminophen [Tylenol] 650 mg PO Q4H PRN - Plan Plan:: Term labor. Desires epidural now. CBC, IVF, type and hold. Anticipate unless otherwise indicated.
[2018-02-16] MEDS ORDERED: Benzocaine/Menthol 20%-0.5% Spray 56 GM Canister TOP PRN (07:50)
[2018-02-16] MEDS ORDERED: Lanolin 100% Cream 7 GM Tube TOP PRN (07:50)
[2018-02-16] MEDS ORDERED: Witch Hazel Medicated Pads 100/Jar TOP PRN (07:50)
--- NOTE | 2018-02-16 08:31 | PCM48HPAN ---
Post Anesthesia Note - EVALUATION WITHIN 48HRS OF ANESTHETIC Vital Signs in Normal Range: Yes Patient Participated in Evaluation: Yes Respiratory Function Stable: Yes Airway Patent: Yes Cardiovascular Function Stable: Yes Hydration Status Stable: Yes Pain Control Satisfactory: Yes Nausea and Vomiting Control Satisfactory: Yes Mental Status Recovered: Yes Pulse Rate: 97 Resp Rate: 18 Temperature: 97.3 F Blood Pressure: 108/54
[2018-02-16] MEDS ORDERED: Docusate Sodium 100 MG Cap PO PRN (10:12)
[2018-02-16] MEDS: Ibuprofen 600 MG Tab PO PRN ×2 (10:23→16:15)
[2018-02-16] MEDS ORDERED: Measles, Mumps & Rubella Vaccine 0.5 ML SDV SUBCUT ONE (16:27)
[2018-02-17] MEDS: Ibuprofen 600 MG Tab PO PRN ×2 (02:31→14:18)
--- NOTE | 2018-02-17 07:34 | PCM.PNPP ---
- General Info Date of Service: 02/17/18 Functional Status: Reports: Pain Controlled - Review of Systems General: Reports: No Symptoms HEENT: Reports: No Symptoms Pulmonary: Reports: No Symptoms Cardiovascular: Reports: No Symptoms Gastrointestinal: Reports: No Symptoms Genitourinary: Reports: No Symptoms Musculoskeletal: Reports: No Symptoms Skin: Reports: No Symptoms Neurological: Reports: No Symptoms Psychiatric: Reports: No Symptoms - General Info Date of Service: 02/17/18 - Patient Data Vital Signs - Most Recent: Last Vital Signs Temp 36.8 C 02/17/18 02:33 Pulse 89 02/17/18 02:33 Resp 16 02/17/18 02:33 BP 117/64 02/17/18 02:33 Pulse Ox 97 02/17/18 02:33 Weight - Most Recent: 100.788 kg I&O - Last 24 Hours: Intake & Output 02/16/18 02/17/18 02/17/18 22:59 06:59 14:59 Intake Total 300 Balance 300 Lab Results - Last 24 Hours: Laboratory Results - last 24 hr 02/15/18 Range/Units 19:24 RPR Non-reactive (NONREACTIVE) Med Orders - Current: Current Medications Benzocaine/Menthol (Dermoplast Pain Relief [place]) 0 gm TOP ASDIRECTED PRN PRN Reason: Perineal Comfort Measure Last Admin: 02/16/18 08:00 Dose: 1 can Docusate Sodium (Colace) 100 mg PO BID PRN PRN Reason: Constipation Last Admin: 02/16/18 16:15 Dose: 100 mg Emollient Ointment (Lansinoh Hpa) 0 gm TOP ASDIRECTED PRN PRN Reason: Sore Nipples Ibuprofen (Motrin) 600 mg PO Q6H PRN PRN Reason: Cramping Last Admin: 02/17/18 02:31 Dose: 600 mg Witch Ysabel (Tucks) 1 pad TOP ASDIRECTED PRN PRN Reason: Hemorrhoid pain Last Admin: 02/16/18 08:00 Dose: 1 jar Discontinued Medications Acetaminophen (Tylenol) 650 mg PO Q4H PRN PRN Reason: Headache Last Admin: 02/16/18 04:15 Dose: 650 mg Bupivacaine HCl (Sensorcaine-Mpf 0.25%) 10 ml .ROUTE .STK-MED ONE Stop: 02/15/18 22:01 Diphenhydramine HCl (Benadryl) 25 mg IVPUSH Q6H PRN PRN Reason: Pruritis Ephedrine Sulfate (Ephedrine Sulfate) 5 mg IVPUSH ASDIRECTED PRN PRN Reason: Hypotension Ephedrine Sulfate (Ephedrine Sulfate) 50 mg .ROUTE .STK-MED ONE Stop: 02/15/18 22:01 Fentanyl (Sublimaze) 100 mcg EPIDUR ONETIME PRN PRN Reason: Pain Last Admin: 02/15/18 20:27 Dose: 100 mcg Fentanyl/Bupivacaine HCl (Fentanyl/Bupivacaine/Ns 2 Mcg-0.125% 100 Ml) 100 ml EPIDUR ASDIRECTED [facility] Last Admin: 02/16/18 05:10 Dose: 100 ml Lactated Ringer's (Ringers, Lactated) 1,000 mls @ 100 mls/hr IV ASDIRECTED [facility] Last Admin: 02/15/18 20:56 Dose: 100 mls/hr Oxytocin/Lactated Ringer's (Pitocin In Lr 10 Units/1,000 Ml) 10 unit in 1,000 mls @ 500 mls/hr IV .CONTINUOUS [facility] Measles/Mumps/Rubella Vaccine Live (M-M-R Ii Vaccine) 0.5 ml SUBCUT .ONCE ONE Stop: 02/16/18 16:28 Nalbuphine HCl (Nubain) 10 mg IVPUSH Q2H PRN PRN Reason: pain Last Admin: 02/15/18 19:33 Dose: 10 mg Ondansetron HCl (Zofran) 4 mg IVPUSH Q4H PRN PRN Reason: Nausea/Vomiting Last Admin: 02/15/18 23:54 Dose: 4 mg Ondansetron HCl (Zofran) 4 mg IVPUSH ONETIME PRN PRN Reason: Nausea/Vomiting Sodium Chloride (Saline Flush) 10 ml FLUSH ASDIRECTED PRN PRN Reason: Keep Vein Open - Interaction Disposition, : [place] at Bedside Support Person: Mother - Recovery Exam Fundal Tone: Firm Fundal Level: At Umbilicus Fundal Placement: Midline Lochia Amount: Small, Moderate Lochia Color: Rubra/Red Perineum Description: Edematous, Other (see below) Other Perinuem Description: Ice applied to bottom Episiotomy/Laceration: Approximated Bladder Status: Voiding - Exam General: Alert, Oriented HEENT: Pupils Equal Neck: Supple Lungs: Clear to Auscultation, Normal Respiratory Effort Cardiovascular: Regular Rate, Regular Rhythm GI/Abdominal Exam: Normal Bowel Sounds, Soft, Non-Tender, No Organomegaly, No Distention, No Abnormal Bruit, No Mass, Pelvis Stable Extremities: Normal Inspection, Normal Range of Motion, Non-Tender, No Pedal Edema, Normal Capillary Refill Skin: Warm, Dry, Intact Neurological: No New Focal Deficit Psy/Mental Status: Alert, Normal Affect, Normal Mood - Problem List Review Problem List Initiated/Reviewed/Updated: Yes - My Orders Last 24 Hours: My Active Orders 02/16/18 07:50 Patient Status [ADT] Routine Activity as Tolerated [RC] PER UNIT ROUTINE Vital Signs [RC] 03,,15, Vital Signs [RC] ASDIRECTED Benzocaine/Menthol [Dermoplast Pain Relief [place]] See Dose Instructions TOP ASDIRECTED PRN Lanolin [Lansinoh HPA] See Dose Instructions TOP ASDIRECTED PRN Witch Ysabel [Tucks] 1 pad TOP ASDIRECTED PRN Assess Lochia [WOMSER] Per Unit Routine Assess Lochia [WOMSER] Per Unit Routine Assess Uterine Involution [WOMSER] Per Unit Routine Assess Uterine Involution [WOMSER] Per Unit Routine Breast Pump [WOMSER] Per Unit Routine Breast Pump [WOMSER] Per Unit Routine Heat Therapy [OM.PC] PRN Heat Therapy [OM.PC] PRN Medication Administration Instruction [OM.PC] Routine Medication Administration Instruction [OM.PC] Routine Perineal Care [OM.PC] Per Unit Routine Perineal Care [OM.PC] Per Unit Routine Sitz Bath [OM.PC] Per Unit Routine Sitz Bath [OM.PC] Per Unit Routine 02/16/18 10:11 Ibuprofen [Motrin] 600 mg PO Q6H PRN 02/16/18 10:12 Docusate Sodium [Colace] 100 mg PO BID PRN 02/16/18 16:28 Vaccines to be Administered [RC] PER UNIT ROUTINE 02/16/18 Lunch Regular Diet [DIET] 02/17/18 07:50 Heat Therapy [OM.PC] PRN Heat Therapy [OM.PC] PRN - Assessment Assessment:: Term uncomplicated delivery. Doing great PPD1 Probable discharge tomorrow.
--- NOTE | 2018-02-17 11:59 | PCM.DCSUM1 ---
Discharge Summary - Hospital Course Diagnosis: Stroke: No - Discharge Data Discharge Date: 02/17/18 Discharge Disposition: Home, Self-Care 01 Condition: Good - Patient Instructions Diet: Usual Diet as Tolerated Activity: No Strenuous Activities Driving: May Drive Today Showering/Bathing: May Shower Notify Provider of: Fever, Increased Pain, Swelling and Redness, Drainage, Nausea and/or Vomiting - Discharge Plan *PRESCRIPTION DRUG MONITORING PROGRAM REVIEWED*: No *COPY OF PRESCRIPTION DRUG MONITORING REPORT IN PATIENT MARYANN: No Home Medications: Home Meds Promethazine [Phenergan] 25 mg PO Q6H PRN 01/03/18 [History] Referrals: Marilyn Noriega MD [Physician] - (2 weeks.) Sherrie Moore MD [Primary Care Provider] - (6 weeks) - General Info Date of Service: 02/17/18 Functional Status: Reports: Pain Controlled - Review of Systems General: Reports: No Symptoms HEENT: Reports: No Symptoms Pulmonary: Reports: No Symptoms Cardiovascular: Reports: No Symptoms Gastrointestinal: Reports: No Symptoms Genitourinary: Reports: No Symptoms Musculoskeletal: Reports: No Symptoms Skin: Reports: No Symptoms Neurological: Reports: No Symptoms Psychiatric: Reports: No Symptoms - Patient Data Vitals - Most Recent: Last Vital Signs Temp 36.7 C 02/17/18 09:03 Pulse 85 02/17/18 09:03 Resp 16 02/17/18 09:03 BP 124/64 02/17/18 09:03 Pulse Ox 98 02/17/18 09:03 Weight - Most Recent: 100.788 kg I&O - Last 24 hours: Intake & Output 02/16/18 02/17/18 02/17/18 22:59 06:59 14:59 Intake Total 300 Balance 300 Lab Results - Last 24 hrs: Laboratory Results - last 24 hr 02/15/18 Range/Units 19:24 RPR Non-reactive (NONREACTIVE) Med Orders - Current: Current Medications Benzocaine/Menthol (Dermoplast Pain Relief [place]) 0 gm TOP ASDIRECTED PRN PRN Reason: Perineal Comfort Measure Last Admin: 02/16/18 08:00 Dose: 1 can Docusate Sodium (Colace) 100 mg PO BID PRN PRN Reason: Constipation Last Admin: 08/20/18 16:15 Dose: 100 mg Emollient Ointment (Lansinoh Hpa) 0 gm TOP ASDIRECTED PRN PRN Reason: Sore Nipples Ibuprofen (Motrin) 600 mg PO Q6H PRN PRN Reason: Cramping Last Admin: 02/17/18 02:31 Dose: 600 mg Witch Ysabel (Tucks) 1 pad TOP ASDIRECTED PRN PRN Reason: Hemorrhoid pain Last Admin: 02/16/18 08:00 Dose: 1 jar Discontinued Medications Acetaminophen (Tylenol) 650 mg PO Q4H PRN PRN Reason: Headache Last Admin: 02/16/18 04:15 Dose: 650 mg Bupivacaine HCl (Sensorcaine-Mpf 0.25%) 10 ml .ROUTE .STK-MED ONE Stop: 02/15/18 22:01 Diphenhydramine HCl (Benadryl) 25 mg IVPUSH Q6H PRN PRN Reason: Pruritis Ephedrine Sulfate (Ephedrine Sulfate) 5 mg IVPUSH ASDIRECTED PRN PRN Reason: Hypotension Ephedrine Sulfate (Ephedrine Sulfate) 50 mg .ROUTE .STK-MED ONE Stop: 02/15/18 22:01 Fentanyl (Sublimaze) 100 mcg EPIDUR ONETIME PRN PRN Reason: Pain Last Admin: 02/15/18 20:27 Dose: 100 mcg Fentanyl/Bupivacaine HCl (Fentanyl/Bupivacaine/Ns 2 Mcg-0.125% 100 Ml) 100 ml EPIDUR ASDIRECTED [facility] Last Admin: 02/16/18 05:10 Dose: 100 ml Lactated Ringer's (Ringers, Lactated) 1,000 mls @ 100 mls/hr IV ASDIRECTED [facility] Last Admin: 02/15/18 20:56 Dose: 100 mls/hr Oxytocin/Lactated Ringer's (Pitocin In Lr 10 Units/1,000 Ml) 10 unit in 1,000 mls @ 500 mls/hr IV .CONTINUOUS [facility] Measles/Mumps/Rubella Vaccine Live (M-M-R Ii Vaccine) 0.5 ml SUBCUT .ONCE ONE Stop: 02/16/18 16:28 Nalbuphine HCl (Nubain) 10 mg IVPUSH Q2H PRN PRN Reason: pain Last Admin: 02/15/18 19:33 Dose: 10 mg Ondansetron HCl (Zofran) 4 mg IVPUSH Q4H PRN PRN Reason: Nausea/Vomiting Last Admin: 02/15/18 23:54 Dose: 4 mg Ondansetron HCl (Zofran) 4 mg IVPUSH ONETIME PRN PRN Reason: Nausea/Vomiting Sodium Chloride (Saline Flush) 10 ml FLUSH ASDIRECTED PRN PRN Reason: Keep Vein Open - Exam General: Reports: Alert, Oriented HEENT: Reports: Pupils Equal, Pupils Reactive, EOMI, Mucous Membr. Moist/[place] Neck: Reports: Supple Lungs: Reports: Clear to Auscultation, Normal Respiratory Effort Cardiovascular: Reports: Regular Rate, Regular Rhythm GI/Abdominal Exam: Normal Bowel Sounds, Soft, Non-Tender, No Organomegaly, No Distention, No Abnormal Bruit, No Mass, Pelvis Stable (Female) Exam: Normal External Exam, Normal Speculum Exam, Normal Bimanual Exam Back Exam: Reports: Normal Inspection, Full Range of Motion Extremities: Normal Inspection, Normal Range of Motion, Non-Tender, No Pedal Edema, Normal Capillary Refill Skin: Reports: Warm, Dry, Intact Wound/Incisions: Reports: Healing Well Neurological: Reports: No New Focal Deficit Psy/Mental Status: Reports: Alert, Normal Affect, Normal Mood
[2018-02-17 16:23] VITALS: BP 116/71
== END 2018-02-17 16:10 | disposition home or self-care (01) | DRG 775 ==
LOC: JD.OBCHECK 18:38 → JD.OB 18:38 → JD.OBCHECK 19:07 → JD.OB 19:09 → OBSVTOIN 02-16 06:59 → JD.OB 02-16 07:00
PROVIDERS: ADMIT Obstetrics & Gynecology; ATTEND Obstetrics & Gynecology
PROC: 3E0R3BZ Introduction of Anesthetic Agent into Spinal Canal, Percutaneous Approach (ICD-10-PCS; 2018-02-15)
PROC: 00HU33Z Insertion of Infusion Device into Spinal Canal, Percutaneous Approach (ICD-10-PCS; 2018-02-15)
PROC: 0HQ9XZZ Repair Perineum Skin, External Approach (ICD-10-PCS; principal; 2018-02-16)
PROC: 10E0XZZ Delivery of Products of Conception, External Approach (ICD-10-PCS; principal; 2018-02-16)
DX: O70.0 First degree perineal laceration during delivery (principal); Z3A.39 39 weeks gestation of pregnancy; Z37.0 Single live birth
CPT/HCPCS: 01967; 36415; 51702; 59025; 59300; 59409; 85025; 86592; 90707; A9270-GY; J2300; J2405; J3010; J3490; J7120

== ENCOUNTER 2018-02-21 21:16 | Inpatient (IN) | payer OTHER, MEDICAID ==
[2018-02-21] MEDS ORDERED: Ketorolac 30 MG/ML SDV IVPUSH ONE (21:35)
[2018-02-21] MEDS ORDERED: Ondansetron 4 MG/2 ML SDV IVPUSH ONE (21:35)
[2018-02-21] MEDS ORDERED: HYDROmorphone 0.5 MG/0.5 ML SYRINGE IVPUSH ONE (21:35)
[2018-02-21] MEDS: Sodium Chloride 0.9% 1,000 ML IV SCH (21:43)
--- NOTE | 2018-02-21 21:49 | EDM.PDOC ---
ED HPI GENERAL MEDICAL PROBLEM - General Chief Complaint: Abdominal Pain Stated Complaint: SOB Time Seen by Provider: 02/21/18 21:17 Source of Information: Reports: Patient, Family History Limitations: Reports: No Limitations - History of Present Illness INITIAL COMMENTS - FREE TEXT/NARRATIVE: This is a 22-year-old female. Onset yesterday with left upper quadrant abdominal pain going into her chest and into her left shoulder it is progressively worsened until this evening she comes into the ER because she is short of breath. She states she short of breath because any time she tries to breathe deep she gets worsening pain in her left chest area and her left shoulder. She is status post delivery about 6 days by a vaginal delivery. She is noted in the ER to have a fever 101.7. She denies any urinary symptoms and she denies any unusual vaginal discharge or any smell to the discharge. She also denies any leg pain or redness or swelling of her legs. She denies any lower abdominal tenderness. She states this all seemed to gradually come on starting yesterday. She is not breast-feeding. 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 History: Reports: None, Neurological History: Reports: None Psychiatric History: Reports: None Endocrine/Metabolic History: Reports: None Hematologic History: Reports: None Immunologic History: Reports: None Oncologic (Cancer) History: Reports: None Dermatologic History: Reports: None - Past Surgical History Head Surgeries/Procedures: Reports: None HEENT Surgical History: Reports: Adenoidectomy, Tonsillectomy Other HEENT Surgeries/Procedures: Addenoidectomy Other Musculoskeletal Surgeries/Procedures:: 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 Denies: Wheezing, Cough Cardiovascular: Reports: Chest Pain Endocrine: Reports: No Symptoms GI/Abdominal: Reports: Abdominal Pain. Denies: Diarrhea, Nausea, Vomiting : Reports: Discharge, Other (Normal post vaginal delivery discharge) Musculoskeletal: Reports: Shoulder Pain Skin: Reports: No Symptoms Neurological: Reports: No Symptoms Psychiatric: Reports: Anxiety Hematologic/Lymphatic: Reports: No Symptoms ED EXAM, GI/ABD - Physical Exam Exam: See Below Exam Limited By: No Limitations General Appearance: Alert, WD/WN, Moderate Distress Eyes: Bilateral: Normal Appearance Ears: Normal External Exam Nose: Normal Inspection Throat/Mouth: Normal Inspection, Normal Lips, Normal Voice, No Airway Compromise Head: Normocephalic Neck: Supple Respiratory/Chest: Other (Decreased lung breath sounds in the bases but I do not hear any crackles or rhonchi or wheezing, she is splinting on the left when she tries to breathe deep and she is holding her breath at times because breathing seems to exacerbate her left chest pain and left shoulder pain) Cardiovascular: Regular Rate, Rhythm, No Edema, No Murmur GI/Abdominal Exam: Soft, Other (She has decreased bowel sounds she has no tenderness in the left lower quadrant midline abdomen and the lower belly as well as right lower quadrant, she is rather tender in the left upper quadrant but not the right upper quadrant, palpation of the left upper quadrant seems to cause tenderness and also some pain going up into her left chest area.) (Female) Exam: Deferred Back Exam: Normal Inspection, Full Range of Motion Extremities: Normal Inspection, Normal Range of Motion Neurological: Alert, Oriented Psychiatric: Anxious Skin Exam: Warm, Diaphoretic Course - Vital Signs Last Recorded V/S: Last Vital Signs Temp 98.0 F 02/22/18 00:29 Pulse 90 02/22/18 00:29 Resp 16 02/22/18 00:29 BP 114/67 02/22/18 00:29 Pulse Ox 96 02/22/18 00:29 - Orders/Labs/Meds Orders: Active Orders 24 hr Category Date Time Status Admission Status [Patient Status] [ADT] Routine ADT 02/22/18 01:35 Active Height and Weight [RC] 04 Care 02/22/18 01:40 Active Intake and Output [RC] 04,16 Care 02/22/18 01:40 Active Oxygen Therapy [RC] PRN Care 02/22/18 01:40 Active RT Aerosol Therapy [RC] ASDIRECTED Care 02/22/18 01:41 Active Up ad Erin [RC] ASDIRECTED Care 02/22/18 01:40 Active VTE/DVT Education [RC] PER UNIT ROUTINE Care 02/22/18 01:40 Active Vital Signs [RC] Q4H Care 02/22/18 01:40 Active Consult to Case Management [CONS] Routine Cons 02/22/18 01:40 Active Consult to Radiology Technologist [CONS] Routine Cons 02/22/18 01:40 Active Consult to Spiritual Care [CONS] Routine Cons 02/22/18 01:40 Active Respiratory Care Assess and Treatment [CONS] Routine Cons 02/22/18 01:40 Active Regular Diet [DIET] Diet 02/22/18 Breakfast Active Abdomen Pelvis w Cont [CT] Stat Exams 02/21/18 22:56 Taken Ang Chest [CT] Stat Exams 02/21/18 23:04 Taken Chest 1V Frontal [CR] AM Exams 02/23/18 05:11 Ordered BASIC METABOLIC PANEL,BMP [CHEM] AM Lab 02/22/18 05:11 Ordered BASIC METABOLIC PANEL,BMP [CHEM] AM Lab 02/23/18 05:11 Ordered BASIC METABOLIC PANEL,BMP [CHEM] AM Lab 02/24/18 05:11 Ordered BASIC METABOLIC PANEL,BMP [CHEM] AM Lab 02/25/18 05:11 Ordered BASIC METABOLIC PANEL,BMP [CHEM] AM Lab 02/26/18 05:11 Ordered C-REACTIVE PROTEIN [CHEM] AM Lab 02/22/18 05:11 Ordered C-REACTIVE PROTEIN [CHEM] AM Lab 02/23/18 05:11 Ordered C-REACTIVE PROTEIN [CHEM] AM Lab 02/24/18 05:11 Ordered C-REACTIVE PROTEIN [CHEM] AM Lab 02/25/18 05:11 Ordered C-REACTIVE PROTEIN [CHEM] AM Lab 02/26/18 05:11 Ordered CBC WITH AUTO DIFF [HEME] AM Lab 02/22/18 05:11 Ordered CBC WITH AUTO DIFF [HEME] AM Lab 02/23/18 05:11 Ordered CBC WITH AUTO DIFF [HEME] AM Lab 02/24/18 05:11 Ordered CBC WITH AUTO DIFF [HEME] AM Lab 02/25/18 05:11 Ordered CBC WITH AUTO DIFF [HEME] AM Lab 02/26/18 05:11 Ordered CULTURE BLOOD [BC] Stat Lab 02/22/18 00:25 Received CULTURE BLOOD [BC] Stat Lab 02/22/18 00:30 Received MAGNESIUM [CHEM] AM Lab 02/22/18 05:11 Ordered MAGNESIUM [CHEM] AM Lab 02/23/18 05:11 Ordered MAGNESIUM [CHEM] AM Lab 02/24/18 05:11 Ordered MAGNESIUM [CHEM] AM Lab 02/25/18 05:11 Ordered MAGNESIUM [CHEM] AM Lab 02/26/18 05:11 Ordered UA W/MICROSCOPIC [URIN] Stat Lab 02/21/18 21:34 Ordered Acetaminophen [Tylenol] Med 02/22/18 01:40 Active 650 mg PO Q4H PRN Acetaminophen/HYDROcodone [[place] 325-5 MG] Med 02/22/18 01:40 Active 1 tab PO Q4H PRN Albuterol/Ipratropium [DuoNeb 3.0-0.5 MG/3 ML] Med 02/22/18 01:40 Active 3 ml NEB Q4H PRN Apixaban [Eliquis] Med 02/22/18 09:00 Ordered 5 mg PO ASDIRECTED Bisacodyl [Dulcolax] Med 02/22/18 01:40 Active 5 mg PO DAILY PRN Docusate Sodium [Colace] Med 02/22/18 01:40 Active 100 mg PO BID PRN Docusate Sodium/Sennosides [Senna Plus] Med 02/22/18 01:40 Active 1 tab PO BID PRN HYDROmorphone [Dilaudid] Med 02/22/18 01:40 Active 0.5 mg IVPUSH Q2H PRN LORazepam [Ativan] Med 02/22/18 01:40 Active 1 mg IV Q6H PRN LORazepam [Ativan] Med 02/22/18 01:38 Active 2 mg IVPUSH Q4H PRN Magnesium Rep Pharmacy to Dose [Pharmacy to Dose - Med 02/22/18 01:45 Ordered Magnesium Replacement] 1 dose .XX ASDIRECTED Metoprolol Tartrate [Lopressor] Med 02/22/18 01:38 Active 5 mg IVPUSH Q4H PRN Ondansetron [Zofran] Med 02/22/18 01:40 Active 4 mg IV Q4H PRN Polyethylene Glycol 3350 [MiraLAX] Med 02/22/18 01:40 Active 17 gm PO DAILY PRN Potassium Rep Pharmacy to Dose [Pharmacy to Dose - Med 02/22/18 01:45 Ordered Potassium Replacement] 1 dose .XX ASDIRECTED Promethazine [Phenergan] Med 02/22/18 01:35 Active 25 mg PO Q4H PRN Promethazine [Phenergan] 12.5 mg Med 02/22/18 01:40 Active Sodium Chloride 0.9% [Normal Saline] 50 ml IV Q6H Sodium Chloride 0.9% [Normal Saline] 1,000 ml Med 02/21/18 21:45 Active IV ASDIRECTED Sodium Chloride 0.9% [Normal Saline] 100 ml Med 02/21/18 23:30 Active IV ASDIRECTED Temazepam [Restoril] Med 02/22/18 01:40 Active 15 mg PO BEDTIME PRN hydrALAZINE [Apresoline] Med 02/22/18 01:38 Active 20 mg IVPUSH Q4H PRN Blood Culture x2 Reflex Set [OM.PC] Stat Oth 02/22/18 00:10 Ordered Resuscitation Status Routine Resus Stat 02/22/18 01:40 Ordered Medication Orders Acetaminophen (Tylenol) 650 mg PO Q4H PRN PRN Reason: Pain (Mild 1-3)/fever Hydrocodone Bitart/Acetaminophen ([place] 325-5 Mg) 1 tab PO Q4H PRN PRN Reason: Pain (moderate 4-6) Albuterol/Ipratropium (Duoneb 3.0-0.5 Mg/3 Ml) 3 ml NEB Q4H PRN PRN Reason: Shortness Of Breath/wheezing Apixaban (Eliquis) 5 mg PO ASDIRECTED PRERNA Benzonatate (Tessalon Perles) 200 mg PO TID PRN PRN Reason: Cough Bisacodyl (Dulcolax) 5 mg PO DAILY PRN PRN Reason: Constipation Docusate Sodium (Colace) 100 mg PO BID PRN PRN Reason: Constipation Hydralazine HCl (Apresoline) 20 mg IVPUSH Q4H PRN PRN Reason: Hypertension Hydromorphone HCl (Dilaudid) 0.5 mg IVPUSH Q2H PRN PRN Reason: Pain (severe 7-10) Sodium Chloride (Normal Saline) 1,000 mls @ 100 mls/hr IV ASDIRECTED COUNTS INCLUDE 234 BEDS AT THE [facility] Last Admin: 02/21/18 21:43 Dose: 100 mls/hr Sodium Chloride (Normal Saline) 100 mls @ 4 mls/sec IV ASDIRECTED COUNTS INCLUDE 234 BEDS AT THE [facility] Last Admin: 02/21/18 23:21 Dose: 4 mls/sec Promethazine HCl 12.5 mg/ (Sodium Chloride) 50.5 mls @ 100 mls/hr IV Q6H PRN PRN Reason: Nausea/Vomiting Levofloxacin/Dextrose 750 mg/ (Premix) 150 mls @ 100 mls/hr IV Q24H PRERNA Lorazepam (Ativan) 2 mg IVPUSH Q4H PRN PRN Reason: Seizures Lorazepam (Ativan) 1 mg IV Q6H PRN PRN Reason: Anxiety Magnesium Sulfate (Pharmacy To Dose - Magnesium Replacement) 1 dose .XX ASDIRECTED COUNTS INCLUDE 234 BEDS AT [facility] Metoprolol Tartrate (Lopressor) 5 mg IVPUSH Q4H PRN PRN Reason: Tachycardia Ondansetron HCl (Zofran) 4 mg IV Q4H PRN PRN Reason: Nausea/Vomiting Polyethylene Glycol (Miralax) 17 gm PO DAILY PRN PRN Reason: Constipation Potassium Chloride (Pharmacy To Dose - Potassium Replacement) 1 dose .XX ASDIRECTED COUNTS INCLUDE 234 BEDS AT THE [facility] Promethazine HCl (Phenergan) 25 mg PO Q4H PRN PRN Reason: Nausea Senna/Docusate Sodium (Senna Plus) 1 tab PO BID PRN PRN Reason: Constipation Temazepam (Restoril) 15 mg PO BEDTIME PRN PRN Reason: Sleep Labs: Laboratory Tests 02/21/18 02/21/18 02/21/18 Range/Units 21:35 21:35 21:35 WBC 14.66 H (3.98-10.04) K/mm3 RBC 4.13 (3.98-5.22) M/mm3 Hgb 11.3 (11.2-15.7) gm/L Hct 34.3 (34.1-44.9) % MCV 83.1 (79.4-94.8) fl MCH 27.4 (25.6-32.2) pg MCHC 32.9 (32.2-35.5) g/dl RDW Std Deviation 41.1 (36.4-46.3) fL Plt Count 303 (182-369) K/mm3 MPV 10.6 (9.4-12.3) fl Neut % (Auto) 65.7 (34.0-71.1) % Lymph % (Auto) 21.0 (19.3-51.7) % Benzie % (Auto) 11.9 (4.7-12.5) % Eos % (Auto) 0.8 (0.7-5.8) Baso % (Auto) 0.2 (0.1-1.2) % Neut # (Auto) 9.63 H (1.56-6.13) K/mm3 Lymph # (Auto) 3.08 (1.18-3.74) K/mm3 Benzie # (Auto) 1.75 H (0.24-0.36) K/mm3 Eos # (Auto) 0.11 (0.04-0.36) K/mm3 Baso # (Auto) 0.03 (0.01-0.08) K/mm3 Manual Slide Review Abnormal smear D-Dimer, Quantitative 2.23 H (0.19-0.50) mg/L Sodium 137 (136-145) mEq/L Potassium 4.4 (3.5-5.1) mEq/L Chloride 103 (98-107) mEq/L Carbon Dioxide 22 (21-32) mEq/L Anion Gap 16.4 H (5-15) BUN 26 H (7-18) mg/dL Creatinine 0.9 (0.55-1.02) mg/dL Est Cr Clr Drug Dosing 100.58 mL/min Estimated GFR (MDRD) > 60 (>60) mL/min BUN/Creatinine Ratio 28.9 H (14-18) Glucose 101 (74-106) mg/dL Lactic Acid (0.4-2.0) mmol/L Calcium 9.0 (8.5-10.1) mg/dL Total Bilirubin 0.2 (0.2-1.0) mg/dL AST 17 (15-37) U/L ALT 34 (14-59) U/L Alkaline Phosphatase 148 H (46-116) U/L Total Protein 7.2 (6.4-8.2) g/dl Albumin 2.5 L (3.4-5.0) g/dl Globulin 4.7 gm/dL Albumin/Globulin Ratio 0.5 L (1-2) 02/21/18 Range/Units 21:45 WBC (3.98-10.04) K/mm3 RBC (3.98-5.22) M/mm3 Hgb (11.2-15.7) gm/L Hct (34.1-44.9) % MCV (79.4-94.8) fl MCH (25.6-32.2) pg MCHC (32.2-35.5) g/dl RDW Std Deviation (36.4-46.3) fL Plt Count (182-369) K/mm3 MPV (9.4-12.3) fl Neut % (Auto) (34.0-71.1) % Lymph % (Auto) (19.3-51.7) % Benzie % (Auto) (4.7-12.5) % Eos % (Auto) (0.7-5.8) Baso % (Auto) (0.1-1.2) % Neut # (Auto) (1.56-6.13) K/mm3 Lymph # (Auto) (1.18-3.74) K/mm3 Benzie # (Auto) (0.24-0.36) K/mm3 Eos # (Auto) (0.04-0.36) K/mm3 Baso # (Auto) (0.01-0.08) K/mm3 Manual Slide Review D-Dimer, Quantitative (0.19-0.50) mg/L Sodium (136-145) mEq/L Potassium (3.5-5.1) mEq/L Chloride (98-107) mEq/L Carbon Dioxide (21-32) mEq/L Anion Gap (5-15) BUN (7-18) mg/dL Creatinine (0.55-1.02) mg/dL Est Cr Clr Drug Dosing mL/min Estimated GFR (MDRD) (>60) mL/min BUN/Creatinine Ratio (14-18) Glucose (74-106) mg/dL Lactic Acid 0.6 (0.4-2.0) mmol/L Calcium (8.5-10.1) mg/dL Total Bilirubin (0.2-1.0) mg/dL AST (15-37) U/L ALT (14-59) U/L Alkaline Phosphatase (46-116) U/L Total Protein (6.4-8.2) g/dl Albumin (3.4-5.0) g/dl Globulin gm/dL Albumin/Globulin Ratio (1-2) Meds: Medications Generic Name Dose Route Start Last Admin Trade Name Freq PRN Reason Stop Dose Admin Acetaminophen 650 mg 02/22/18 01:40 Tylenol PO Q4H PRN Pain (Mild 1-3)/fever Hydrocodone Bitart/Acetaminophen 1 tab 02/22/18 01:40 [place] 325-5 Mg PO Q4H PRN Pain (moderate 4-6) Albuterol/Ipratropium 3 ml 02/22/18 01:40 Duoneb 3.0-0.5 Mg/3 Ml NEB Q4H PRN Shortness Of Breath/wheezing Apixaban 5 mg 02/22/18 09:00 Eliquis PO ASDIRECTED PRERNA Benzonatate 200 mg 02/22/18 01:43 Tessalon Perles PO TID PRN Cough Bisacodyl 5 mg 02/22/18 01:40 Dulcolax PO DAILY PRN Constipation Docusate Sodium 100 mg 02/22/18 01:40 Colace PO BID PRN Constipation Hydralazine HCl 20 mg 02/22/18 01:38 Apresoline IVPUSH Q4H PRN Hypertension Hydromorphone HCl 0.5 mg 02/22/18 01:40 Dilaudid IVPUSH Q2H PRN Pain (severe 7-10) Sodium Chloride 1,000 mls @ 100 mls/hr 02/21/18 21:45 02/21/18 21:43 Normal Saline IV 100 mls/hr ASDIRECTED PRERNA Administration Sodium Chloride 100 mls @ 4 mls/sec 02/21/18 23:30 02/21/18 23:21 Normal Saline IV 4 mls/sec ASDIRECTED PRERNA Administration Promethazine HCl 12.5 mg/ 50.5 mls @ 100 mls/hr 02/22/18 01:40 Sodium Chloride IV Q6H PRN Nausea/Vomiting Levofloxacin/Dextrose 750 mg/ 150 mls @ 100 mls/hr 02/22/18 09:00 Premix IV Q24H PRERNA Lorazepam 2 mg 02/22/18 01:38 Ativan IVPUSH Q4H PRN Seizures Lorazepam 1 mg 02/22/18 01:40 Ativan IV Q6H PRN Anxiety Magnesium Sulfate 1 dose 02/22/18 01:45 Pharmacy To Dose - Magnesium Replacement .XX ASDIRECTED COUNTS INCLUDE 234 BEDS AT THE [facility] Metoprolol Tartrate 5 mg 02/22/18 01:38 Lopressor IVPUSH Q4H PRN Tachycardia Ondansetron HCl 4 mg 02/22/18 01:40 Zofran IV Q4H PRN Nausea/Vomiting Polyethylene Glycol 17 gm 02/22/18 01:40 Miralax PO DAILY PRN Constipation Potassium Chloride 1 dose 02/22/18 01:45 Pharmacy To Dose - Potassium Replacement .XX ASDIRECTED COUNTS INCLUDE 234 BEDS AT THE [facility] Promethazine HCl 25 mg 02/22/18 01:35 Phenergan PO Q4H PRN Nausea Senna/Docusate Sodium 1 tab 02/22/18 01:40 Senna Plus PO BID PRN Constipation Temazepam 15 mg 02/22/18 01:40 Restoril PO BEDTIME PRN Sleep Discontinued Medications Generic Name Dose Route Start Last Admin Trade Name Freq PRN Reason Stop Dose Admin Enoxaparin Sodium 90 mg 02/22/18 00:23 02/22/18 00:28 Lovenox SUBCUT 02/22/18 00:24 90 mg ONETIME ONE Administration Hydromorphone HCl 0.5 mg 02/21/18 21:35 02/21/18 21:44 Dilaudid IVPUSH 02/21/18 21:36 0.5 mg ONETIME ONE Administration Ceftriaxone Sodium 2 gm/ 100 mls @ 100 mls/hr 02/22/18 00:11 02/22/18 00:31 Sodium Chloride IV 02/22/18 01:10 100 mls/hr ONETIME ONE Administration Iopamidol 100 ml 02/21/18 23:06 02/21/18 23:13 Isovue-370 (76%) IVPUSH 02/21/18 23:07 100 ml ONETIME ONE Administration Iopamidol 25 ml 02/21/18 23:06 02/21/18 23:13 Isovue-370 (76%) IVPUSH 02/21/18 23:07 25 ml ONETIME ONE Administration Ketorolac Tromethamine 30 mg 02/21/18 21:35 02/21/18 21:44 Toradol IVPUSH 02/21/18 21:36 30 mg ONETIME ONE Administration Ondansetron HCl 4 mg 02/21/18 21:35 02/21/18 21:43 Zofran IVPUSH 02/21/18 21:36 4 mg ONETIME ONE Administration - Radiology Interpretation Free Text/Narrative:: CT scan of the chest shows in the left lower lobe posterior medial pulmonary artery is occluded and there is also a left lower lobe consolidation with large amount of airspace disease suggesting an infiltrate or possible pneumonia. So the radiologist felt that she could have a pulmonary artery blood clot or embolus as well as a segmental pneumonia. CT scan of the abdomen and pelvis did not show any acute findings - Re-Assessments/Exams Free Text/Narrative Re-Assessment/Exam: 02/22/18 00:22 I spoke with the patient as well as her mother and father regarding the findings. I did speak to Dr. Rosas who does not feel comfortable admitting the patient to the hospital for workup of this type of possible pulmonary embolus and pneumonia. The family has chosen to have her go to [facility] in [place]. I will call them and make arrangements to get her transported there. In the meantime since she is not breast-feeding we'll put her on some Lovenox 90 mg subcutaneous. I will get 2 blood cultures and start her on 2 g of Rocephin IV. 02/22/18 00:42 I spoke to the hospitalist to [facility] in [place] and he is somewhat concerned that it is going to cause this patient a bit of money to travel by ambulance to [facility] and since she is stable and only requires some heparin and antibiotics he doesn't feel she is appropriate for transfer. He requested Dr. Rosas phone number so that he could speak with Dr. Rosas about his uncertainty in admitting her. I provided that number to him so that they can speak together regarding this patient. 02/22/18 00:52 Dr. Rosas is going to come and see the patient in the ER for evaluation and possible admission. 02/22/18 01:51 Dr. Rosas is going to admit the patient for further evaluation and treatment. Departure - Departure Time of Disposition: 01:52 Disposition: Admitted As Inpatient 68 Condition: Fair Clinical Impression: Left lower lobe pneumonia Qualifiers: Pneumonia type: due to unspecified organism Qualified Code(s): J18.1 - Lobar pneumonia, unspecified organism Pulmonary embolism Qualifiers: Pulmonary embolism type: other Chronicity: acute Acute cor pulmonale presence: without acute cor pulmonale Qualified Code(s): I26.99 - Other pulmonary embolism without acute cor pulmonale - Discharge Information *PRESCRIPTION DRUG MONITORING PROGRAM REVIEWED*: Not Applicable *COPY OF PRESCRIPTION DRUG MONITORING REPORT IN PATIENT MARYANN: Not Applicable ED Communication - ED Communication Date/Time Date: 02/22/18 Time Called: 01:54 - Discussed Case With (1) Discussed Case With (1): Admitting Provider Person/s Notified (1): Johnathan Rosas (He agrees to admit the patient for further evaluation and treatment) - My Orders Last 24 Hours: My Active Orders 02/21/18 21:34 UA W/MICROSCOPIC [URIN] Stat 02/21/18 21:45 Sodium Chloride 0.9% [Normal Saline] 1,000 ml IV ASDIRECTED 02/21/18 22:56 Abdomen Pelvis w Cont [CT] Stat 02/21/18 23:04 Ang Chest [CT] Stat 02/21/18 23:30 Sodium Chloride 0.9% [Normal Saline] 100 ml IV ASDIRECTED 02/22/18 00:10 Blood Culture x2 Reflex Set [OM.PC] Stat 02/22/18 00:25 CULTURE BLOOD [BC] Stat 02/22/18 00:30 CULTURE BLOOD [BC] Stat 02/22/18 01:35 Admission Status [Patient Status] [ADT] Routine - Assessment/Plan Last 24 Hours: My Active Orders 02/21/18 21:34 UA W/MICROSCOPIC [URIN] Stat 02/21/18 21:45 Sodium Chloride 0.9% [Normal Saline] 1,000 ml IV ASDIRECTED 02/21/18 22:56 Abdomen Pelvis w Cont [CT] Stat 02/21/18 23:04 Ang Chest [CT] Stat 02/21/18 23:30 Sodium Chloride 0.9% [Normal Saline] 100 ml IV ASDIRECTED 02/22/18 00:10 Blood Culture x2 Reflex Set [OM.PC] Stat 02/22/18 00:25 CULTURE BLOOD [BC] Stat 02/22/18 00:30 CULTURE BLOOD [BC] Stat 02/22/18 01:35 Admission Status [Patient Status] [ADT] Routine
[2018-02-21] MEDS ORDERED: Iopamidol 755 Mg/ML 100 ML Bottle IVPUSH ONE (23:06)
[2018-02-21] MEDS ORDERED: Iopamidol 755 MG/ML 50 ML Bottle IVPUSH ONE (23:06)
[2018-02-21] MEDS ORDERED: Sodium Chloride 0.9% 100 ML IV SCH (23:30)
[2018-02-22] MEDS ORDERED: Enoxaparin 80 MG/0.8 ML Syringe SUBCUT ONE (00:10)
[2018-02-22] MEDS ORDERED: cefTRIAXone 2 GM in Sodium Chloride 0.9% 100 ML IV ONE (00:11)
[2018-02-22] MEDS ORDERED: Enoxaparin 100 MG/1 ML Syringe SUBCUT ONE (00:23)
[2018-02-22] MEDS ORDERED: Promethazine 25 MG Tab PO PRN (01:35)
[2018-02-22] MEDS ORDERED: hydrALAZINE 20 MG/ML SDV IVPUSH PRN (01:38)
[2018-02-22] MEDS ORDERED: LORazepam 2 MG/ML SDV IVPUSH PRN (01:38)
[2018-02-22] MEDS ORDERED: Metoprolol Tartrate 5 MG/5 ML SDV IVPUSH PRN (01:38)
--- NOTE | 2018-02-22 01:38 | PCM.HP ---
H&P History of Present Illness - General Date of Service: 02/22/18 Admit Problem/Dx: Admission Diagnosis/Problem Admission Diagnosis/Problem Pulmonary embolism Source of Information: Patient, Family, Old Records, Provider, RN Notes Reviewed History Limitations: Reports: No Limitations - History of Present Illness Initial Comments - Free Text/Narative: This is a 22-year-old white female with no significant past medical history who presents to the emergency department with complains of left lower quadrant abdominal pain with radiation to the chest and into the shoulder that has progressively gotten worse this evening. Her chief complaint is associated with shortness of breath along with pleuritic chest pain. She is status post day 6 vaginal delivery. Patient denies any sick contact. She denies having fever or chills. However on presentation to the emergency department she was found to have a temperature of 101.7. She did report some vaginal discharge but denies any unusual smell. She is not an active smoker. She denies alcohol or illicit drug use. Currently, she is not on control pills. She is also not breast-feeding or pumping milk for her baby. Her initial workup in the emergency department shows a CBC remarkable for WBC of 14.66, neutrophil count of 9.63, and monocyte count of 1.75. Her d-dimer is significantly elevated at 2.23.Her chemistry is significant for anion gap is 16.4, BUN of 26, alkaline phosphatase of 148, and albumin of 2.5. Her chest CTA report reads left lower lobe posterior medial basal segment pulmonary artery is occluded presumably from a pulmonary embolus.There is a left lower lobe consolidation. Large amount of airspace disease in the posterior medial basal segment of the left lower lobe. No pneumothorax, thoracic aneurysm, evidence of RV dysfunction, cardiomegaly and no significant pericardial effusion. Her abdominal and pelvis CT scan without contrast report reads no acute findings in the abdomen or pelvis. Patient received initial treatment in the emergency department for PE and Pneumonia before she was transferred to the floor for further management. Left ribcage Pain Score (Numeric/FACES): 9 - Related Data Allergies/Adverse Reactions: Allergies Allergy/AdvReac Type Severity Reaction Status Date / Time No Known Allergies Allergy Verified 02/21/18 21:25 Home Medications: Home Meds Promethazine [Phenergan] 25 mg PO Q6HR PRN 02/21/18 [History] Past Medical History Respiratory History: Reports: None Gastrointestinal History: Reports: Other (See Below) Genitourinary History: Reports: None PATTERN SETTER History: Reports: None, Neurological History: Reports: None Psychiatric History: Reports: None Endocrine/Metabolic History: Reports: None Hematologic History: Reports: None Immunologic History: Reports: None Oncologic (Cancer) History: Reports: None Dermatologic History: Reports: None - Past Surgical History Head Surgeries/Procedures: Reports: None HEENT Surgical History: Reports: Adenoidectomy, Tonsillectomy Other HEENT Surgeries/Procedures: Addenoidectomy Other Musculoskeletal Surgeries/Procedures:: 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 Denies: Malaise, Weakness, Fatigue HEENT: Reports: No Symptoms Pulmonary: Reports: Shortness of Breath, Pleuritic Chest Pain. Denies: Cough, Sputum, Hemoptysis Cardiovascular: Reports: Chest Pain. Denies: Palpitations, Dyspnea on Exertion , Edema, Lightheadedness, Blood Pressure Problem Gastrointestinal: Reports: Abdominal Pain. Denies: Decreased Appetite, Nausea, Stool Incontinence Genitourinary: Reports: Discharge (vaginal) Musculoskeletal: Reports: No Symptoms Skin: Denies: Cyanosis, Jaundice, Pallor, Diaphoresis, Bruising, Pruritis, Wound Psychiatric: Denies: Depression, Anxiety, Agitation, Hallucinations Neurological: Denies: Dizziness, Headache, Seizure, Syncope, Difficulty Walking , Weakness, Gait Disturbance Hematologic/Lymphatic: Denies: Anemia, Easy Bleeding, Easy Bruising Immunologic: Reports: No Symptoms Exam - Exam Exam: See Below - Vital Signs Vital Signs: Last Vital Signs Temp 36.7 C 02/22/18 00:29 Pulse 90 02/22/18 00:29 Resp 16 02/22/18 00:29 BP 114/67 02/22/18 00:29 Pulse Ox 96 02/22/18 00:29 Weight: 90.718 kg - Exam General: Alert, Oriented, Cooperative. No: Mild Distress HEENT: Conjunctiva Clear, EACs Clear, EOMI, Hearing Intact, Mucosa Moist & [place] , Nares Patent, Normal Nasal Septum, Posterior Pharynx Clear, Pupils Equal, Pupils Reactive Neck: Supple, Trachea Midline, +2 Carotid Pulse wo Bruit, Full Range of Motion Lungs: Normal Respiratory Effort, Decreased Breath Sounds, Other (pain with deep inspiration) Cardiovascular: Regular Rate, Regular Rhythm GI/Abdominal Exam: Normal Bowel Sounds, Soft, Non-Tender, No Organomegaly, No Distention, No Abnormal Bruit (Female) Exam: Deferred Rectal (Female) Exam: Deferred Back Exam: Normal Inspection, Decreased Range of Motion Extremities: Normal Inspection, Normal Range of Motion, Non-Tender, No Pedal Edema, Normal Capillary Refill Peripheral Pulses: 2+: Dorsalis Pedis (L), Dorsalis Pedis (R) Skin: Warm, Dry, Intact Neuro Extensive - Mental Status: Oriented x3, Normal Cognition, Memory Intact Neuro Extensive - Motor, Sensory, Reflexes: CN II-XII Intact, Normal Gait Psychiatric: Alert, Normal Affect, Normal Mood - Patient Data Lab Results Last 24 hrs: Laboratory Results - last 24 hr 02/21/18 02/21/18 02/21/18 Range/Units 21:35 21:35 21:35 WBC 14.66 H (3.98-10.04) K/mm3 RBC 4.13 (3.98-5.22) M/mm3 Hgb 11.3 (11.2-15.7) gm/L Hct 34.3 (34.1-44.9) % MCV 83.1 (79.4-94.8) fl MCH 27.4 (25.6-32.2) pg MCHC 32.9 (32.2-35.5) g/dl RDW Std Deviation 41.1 (36.4-46.3) fL Plt Count 303 (182-369) K/mm3 MPV 10.6 (9.4-12.3) fl Neut % (Auto) 65.7 (34.0-71.1) % Lymph % (Auto) 21.0 (19.3-51.7) % [place] % (Auto) 11.9 (4.7-12.5) % Eos % (Auto) 0.8 (0.7-5.8) Baso % (Auto) 0.2 (0.1-1.2) % Neut # (Auto) 9.63 H (1.56-6.13) K/mm3 Lymph # (Auto) 3.08 (1.18-3.74) K/mm3 [place] # (Auto) 1.75 H (0.24-0.36) K/mm3 Eos # (Auto) 0.11 (0.04-0.36) K/mm3 Baso # (Auto) 0.03 (0.01-0.08) K/mm3 Manual Slide Review Abnormal smear D-Dimer, Quantitative 2.23 H (0.19-0.50) mg/L Sodium 137 (136-145) mEq/L Potassium 4.4 (3.5-5.1) mEq/L Chloride 103 (98-107) mEq/L Carbon Dioxide 22 (21-32) mEq/L Anion Gap 16.4 H (5-15) BUN 26 H (7-18) mg/dL Creatinine 0.9 (0.55-1.02) mg/dL Est Cr Clr Drug Dosing 100.58 mL/min Estimated GFR (MDRD) > 60 (>60) mL/min BUN/Creatinine Ratio 28.9 H (14-18) Glucose 101 (74-106) mg/dL Lactic Acid (0.4-2.0) mmol/L Calcium 9.0 (8.5-10.1) mg/dL Total Bilirubin 0.2 (0.2-1.0) mg/dL AST 17 (15-37) U/L ALT 34 (14-59) U/L Alkaline Phosphatase 148 H (46-116) U/L Total Protein 7.2 (6.4-8.2) g/dl Albumin 2.5 L (3.4-5.0) g/dl Globulin 4.7 gm/dL Albumin/Globulin Ratio 0.5 L (1-2) 02/21/18 Range/Units 21:45 WBC (3.98-10.04) K/mm3 RBC (3.98-5.22) M/mm3 Hgb (11.2-15.7) gm/L Hct (34.1-44.9) % MCV (79.4-94.8) fl MCH (25.6-32.2) pg MCHC (32.2-35.5) g/dl RDW Std Deviation (36.4-46.3) fL Plt Count (182-369) K/mm3 MPV (9.4-12.3) fl Neut % (Auto) (34.0-71.1) % Lymph % (Auto) (19.3-51.7) % [place] % (Auto) (4.7-12.5) % Eos % (Auto) (0.7-5.8) Baso % (Auto) (0.1-1.2) % Neut # (Auto) (1.56-6.13) K/mm3 Lymph # (Auto) (1.18-3.74) K/mm3 [place] # (Auto) (0.24-0.36) K/mm3 Eos # (Auto) (0.04-0.36) K/mm3 Baso # (Auto) (0.01-0.08) K/mm3 Manual Slide Review D-Dimer, Quantitative (0.19-0.50) mg/L Sodium (136-145) mEq/L Potassium (3.5-5.1) mEq/L Chloride (98-107) mEq/L Carbon Dioxide (21-32) mEq/L Anion Gap (5-15) BUN (7-18) mg/dL Creatinine (0.55-1.02) mg/dL Est Cr Clr Drug Dosing mL/min Estimated GFR (MDRD) (>60) mL/min BUN/Creatinine Ratio (14-18) Glucose (74-106) mg/dL Lactic Acid 0.6 (0.4-2.0) mmol/L Calcium (8.5-10.1) mg/dL Total Bilirubin (0.2-1.0) mg/dL AST (15-37) U/L ALT (14-59) U/L Alkaline Phosphatase (46-116) U/L Total Protein (6.4-8.2) g/dl Albumin (3.4-5.0) g/dl Globulin gm/dL Albumin/Globulin Ratio (1-2) Result Diagrams: 02/22/18 06:06 02/22/18 06:06 Problem List Initiated/Reviewed/Updated: Yes Orders Last 24hrs: Active Orders 24 hr Category Date Time Status Admission Status [Patient Status] [ADT] Routine ADT 02/22/18 01:35 Active Abdomen Pelvis w Cont [CT] Stat Exams 02/21/18 22:56 Taken Ang Chest [CT] Stat Exams 02/21/18 23:04 Taken CULTURE BLOOD [BC] Stat Lab 02/22/18 00:25 Received CULTURE BLOOD [BC] Stat Lab 02/22/18 00:30 Received UA W/MICROSCOPIC [URIN] Stat Lab 02/21/18 21:34 Ordered Promethazine [Phenergan] Med 02/22/18 01:35 Active 25 mg PO Q4H PRN Sodium Chloride 0.9% [Normal Saline] 1,000 ml Med 02/21/18 21:45 Active IV ASDIRECTED Sodium Chloride 0.9% [Normal Saline] 100 ml Med 02/21/18 23:30 Active IV ASDIRECTED Blood Culture x2 Reflex Set [OM.PC] Stat Oth 02/22/18 00:10 Ordered Medication Orders Sodium Chloride (Normal Saline) 1,000 mls @ 100 mls/hr IV ASDIRECTED PRERNA Last Admin: 02/21/18 21:43 Dose: 100 mls/hr Sodium Chloride (Normal Saline) 100 mls @ 4 mls/sec IV ASDIRECTED PRERNA Last Admin: 02/21/18 23:21 Dose: 4 mls/sec Promethazine HCl (Phenergan) 25 mg PO Q4H PRN PRN Reason: Nausea Assessment/Plan Comment:: Assessment/Plan: Acute: Pulmonary Embolus - Risk Factor: 6 days Post Vaginal Delivery (Immobility+/- Surgery) - This is provoked in etiology - Carries no personal or family hx/o coagulopathic disorders, no Facto V Leiden Deficiency, she does not smoke and denies being on OCP - No recent prolonged travel, no active malignancy and she is not Obese - Chest CTA report reads occluded posterior medial basal segment pulmonary artery presumably from pulmonary embolus.Large amount of airspace disease in the segment which is suspected from pulmonary infarct. - Patient received Lovenox SubQ in ED before she was admitted to the floor - At the time of admission, she was hemodynamically stable - They were made aware if she gets worse, we may need to send her to [facility] - Discussed option for treatment since she received Lovenox; offered traditional and novel anticoagulation--> patient and her father selected Eliquis (coupon provided to father) - Patient states--> she "does not breast feed or pump"; ADVISED not to use mild while she is on blood thinner - She will start Elqiuis does in AM 2 tabs po BID for 7 days then 1 tab po there after - May need 2D if she starts becoming hemodynamically unstable Left Sided Pneumonia - Chest CTA shows left lower lobe consolidation - She received IV Rocephin in ED; will switch to IV Levaquin 750 mg daily with probiotic - Decongestant, Suppressant, Bronchodilators, Supplemental O2, Routine RT Care - Sputum Cx, Blood Cx, Mycoplasma and Strep pneumonia Ag tests - FV/IS as directed - Serial CXR as indicated Pleuritic Pain - Controlled at this point - PRN narcotic IVP/Pills - Educated her about pain control and management - May need scheduled and PRN pain regimen for optimal control Plan: Admit to [facility] with Tele Resume Home Meds Routine AM Labs Isolation precaution Stool Softener to prevent constipation 2D echo in AM Duplex U/S r/o DVT RT consult Advised not to bring in baby for now SW/CM for d/c planning Encourage to ambulate TID-QID and use IS/FV as directed Code status:
[2018-02-22] MEDS ORDERED: Docusate Sodium 100 MG Cap PO PRN (01:40)
[2018-02-22] MEDS ORDERED: Albuterol/Ipratropium 3.0-0.5 MG/3 ML Neb Soln NEB PRN (01:40)
[2018-02-22] MEDS ORDERED: Promethazine 12.5 MG in Sodium Chloride 0.9% 50 ML IV PRN (01:40)
[2018-02-22] MEDS ORDERED: Bisacodyl 5 MG Tab PO PRN (01:40)
[2018-02-22] MEDS ORDERED: Acetaminophen 325 MG Tab PO PRN (01:40)
[2018-02-22] MEDS ORDERED: Polyethylene Glycol 3350 Powder 17 GM Packet PO PRN (01:40)
[2018-02-22] MEDS ORDERED: LORazepam 2 MG/ML SDV IV PRN (01:40)
[2018-02-22] MEDS ORDERED: Temazepam 15 MG Cap PO PRN (01:40)
[2018-02-22] MEDS ORDERED: Benzonatate 100 MG Cap PO PRN (01:43)
[2018-02-22] MEDS: Acetaminophen/HYDROcodone 325-5 MG Tab PO PRN ×4 (02:59→17:27)
[2018-02-22] MEDS: HYDROmorphone 0.5 MG/0.5 ML Syringe IVPUSH PRN ×3 (05:44→15:07)
[2018-02-22] MEDS: Sodium Chloride 0.9% 1,000 ML IV SCH ×2 (07:18→17:27)
--- NOTE | 2018-02-22 09:51 | PCM.PN ---
- General Info Date of Service: 02/22/18 Admission Dx/Problem (Free Text): Admission Diagnosis/Problem Admission Diagnosis/Problem Pulmonary embolism Subjective Update: Follow Up Functional Status: Reports: Pain Controlled, Tolerating Diet, Ambulating, Urinating - Patient Data Vitals - Most Recent: Last Vital Signs Temp 37.1 C 02/22/18 05:42 Pulse 74 02/22/18 05:42 Resp 18 02/22/18 05:42 BP 103/76 02/22/18 05:42 Pulse Ox 98 02/22/18 05:42 Weight - Most Recent: 92.397 kg I&O - Last 24 Hours: Intake & Output 02/21/18 02/22/18 02/22/18 22:59 06:59 14:59 Intake Total 526 Balance 526 Lab Results Last 24 Hours: Laboratory Results - last 24 hr 02/21/18 02/21/18 02/21/18 Range/Units 21:35 21:35 21:35 WBC 14.66 H (3.98-10.04) K/mm3 RBC 4.13 (3.98-5.22) M/mm3 Hgb 11.3 (11.2-15.7) gm/L Hct 34.3 (34.1-44.9) % MCV 83.1 (79.4-94.8) fl MCH 27.4 (25.6-32.2) pg MCHC 32.9 (32.2-35.5) g/dl RDW Std Deviation 41.1 (36.4-46.3) fL Plt Count 303 (182-369) K/mm3 MPV 10.6 (9.4-12.3) fl Neut % (Auto) 65.7 (34.0-71.1) % Lymph % (Auto) 21.0 (19.3-51.7) % [place] % (Auto) 11.9 (4.7-12.5) % Eos % (Auto) 0.8 (0.7-5.8) Baso % (Auto) 0.2 (0.1-1.2) % Neut # (Auto) 9.63 H (1.56-6.13) K/mm3 Lymph # (Auto) 3.08 (1.18-3.74) K/mm3 [place] # (Auto) 1.75 H (0.24-0.36) K/mm3 Eos # (Auto) 0.11 (0.04-0.36) K/mm3 Baso # (Auto) 0.03 (0.01-0.08) K/mm3 Manual Slide Review Abnormal smear D-Dimer, Quantitative 2.23 H (0.19-0.50) mg/L Sodium 137 (136-145) mEq/L Potassium 4.4 (3.5-5.1) mEq/L Chloride 103 (98-107) mEq/L Carbon Dioxide 22 (21-32) mEq/L Anion Gap 16.4 H (5-15) BUN 26 H (7-18) mg/dL Creatinine 0.9 (0.55-1.02) mg/dL Est Cr Clr Drug Dosing 100.58 mL/min Estimated GFR (MDRD) > 60 (>60) mL/min BUN/Creatinine Ratio 28.9 H (14-18) Glucose 101 (74-106) mg/dL Lactic Acid (0.4-2.0) mmol/L Calcium 9.0 (8.5-10.1) mg/dL Magnesium (1.8-2.4) mg/dl Total Bilirubin 0.2 (0.2-1.0) mg/dL AST 17 (15-37) U/L ALT 34 (14-59) U/L Alkaline Phosphatase 148 H (46-116) U/L C-Reactive Protein (<1.0) mg/dL Total Protein 7.2 (6.4-8.2) g/dl Albumin 2.5 L (3.4-5.0) g/dl Globulin 4.7 gm/dL Albumin/Globulin Ratio 0.5 L (1-2) 02/21/18 02/22/18 02/22/18 Range/Units 21:45 06:06 06:06 WBC 10.99 H (3.98-10.04) K/mm3 RBC 3.73 L (3.98-5.22) M/mm3 Hgb 10.0 L (11.2-15.7) gm/L Hct 31.5 L (34.1-44.9) % MCV 84.5 (79.4-94.8) fl MCH 26.8 (25.6-32.2) pg MCHC 31.7 L (32.2-35.5) g/dl RDW Std Deviation 41.7 (36.4-46.3) fL Plt Count 247 (182-369) K/mm3 MPV 10.5 (9.4-12.3) fl Neut % (Auto) 57.1 (34.0-71.1) % Lymph % (Auto) 26.5 (19.3-51.7) % [place] % (Auto) 14.9 H (4.7-12.5) % Eos % (Auto) 0.9 (0.7-5.8) Baso % (Auto) 0.3 (0.1-1.2) % Neut # (Auto) 6.28 H (1.56-6.13) K/mm3 Lymph # (Auto) 2.91 (1.18-3.74) K/mm3 [place] # (Auto) 1.64 H (0.24-0.36) K/mm3 Eos # (Auto) 0.10 (0.04-0.36) K/mm3 Baso # (Auto) 0.03 (0.01-0.08) K/mm3 Manual Slide Review Abnormal smear D-Dimer, Quantitative (0.19-0.50) mg/L Sodium 139 (136-145) mEq/L Potassium 4.3 (3.5-5.1) mEq/L Chloride 107 (98-107) mEq/L Carbon Dioxide 23 (21-32) mEq/L Anion Gap 13.3 (5-15) BUN 24 H (7-18) mg/dL Creatinine 0.8 (0.55-1.02) mg/dL Est Cr Clr Drug Dosing 113.16 mL/min Estimated GFR (MDRD) > 60 (>60) mL/min BUN/Creatinine Ratio 30.0 H (14-18) Glucose 85 (74-106) mg/dL Lactic Acid 0.6 (0.4-2.0) mmol/L Calcium 8.3 L (8.5-10.1) mg/dL Magnesium 2.0 (1.8-2.4) mg/dl Total Bilirubin (0.2-1.0) mg/dL AST (15-37) U/L ALT (14-59) U/L Alkaline Phosphatase (46-116) U/L C-Reactive Protein 26.7 H* (<1.0) mg/dL Total Protein (6.4-8.2) g/dl Albumin (3.4-5.0) g/dl Globulin gm/dL Albumin/Globulin Ratio (1-2) Med Orders - Current: Current Medications Acetaminophen (Tylenol) 650 mg PO Q4H PRN PRN Reason: Pain (Mild 1-3)/fever Hydrocodone Bitart/Acetaminophen ([place] 325-5 Mg) 1 tab PO Q4H PRN PRN Reason: Pain (moderate 4-6) Last Admin: 02/22/18 07:51 Dose: 1 tab Albuterol/Ipratropium (Duoneb 3.0-0.5 Mg/3 Ml) 3 ml NEB Q4H PRN PRN Reason: Shortness Of Breath/wheezing Apixaban (Eliquis) 10 mg PO BID [facility] Stop: 02/28/18 21:01 Apixaban (Eliquis) 5 mg PO BID PRERNA Benzonatate (Tessalon Perles) 200 mg PO TID PRN PRN Reason: Cough Bisacodyl (Dulcolax) 5 mg PO DAILY PRN PRN Reason: Constipation Docusate Sodium (Colace) 100 mg PO BID PRN PRN Reason: Constipation Hydralazine HCl (Apresoline) 20 mg IVPUSH Q4H PRN PRN Reason: Hypertension Hydromorphone HCl (Dilaudid) 0.5 mg IVPUSH Q2H PRN PRN Reason: Pain (severe 7-10) Last Admin: 02/22/18 05:44 Dose: 0.5 mg Sodium Chloride (Normal Saline) 1,000 mls @ 100 mls/hr IV ASDIRECTED [facility] Last Admin: 02/22/18 07:18 Dose: 100 mls/hr Sodium Chloride (Normal Saline) 100 mls @ 4 mls/sec IV ASDIRECTED PRERNA Last Admin: 02/21/18 23:21 Dose: 4 mls/sec Promethazine HCl 12.5 mg/ (Sodium Chloride) 50.5 mls @ 100 mls/hr IV Q6H PRN PRN Reason: Nausea/Vomiting Levofloxacin/Dextrose 750 mg/ (Premix) 150 mls @ 100 mls/hr IV Q24H PRERNA Lorazepam (Ativan) 2 mg IVPUSH Q4H PRN PRN Reason: Seizures Lorazepam (Ativan) 1 mg IV Q6H PRN PRN Reason: Anxiety Magnesium Sulfate (Pharmacy To Dose - Magnesium Replacement) 0 dose .XX ASDIRECTED PRN PRN Reason: RX TO WATCH MAG Metoprolol Tartrate (Lopressor) 5 mg IVPUSH Q4H PRN PRN Reason: Tachycardia Ondansetron HCl (Zofran) 4 mg IV Q4H PRN PRN Reason: Nausea/Vomiting Polyethylene Glycol (Miralax) 17 gm PO DAILY PRN PRN Reason: Constipation Potassium Chloride (Pharmacy To Dose - Potassium Replacement) 0 dose .XX ASDIRECTED PRN PRN Reason: RX TO WATCH K Promethazine HCl (Phenergan) 25 mg PO Q4H PRN PRN Reason: Nausea Senna/Docusate Sodium (Senna Plus) 1 tab PO BID PRN PRN Reason: Constipation Temazepam (Restoril) 15 mg PO BEDTIME PRN PRN Reason: Sleep Discontinued Medications Enoxaparin Sodium (Lovenox) 90 mg SUBCUT ONETIME ONE Stop: 02/22/18 00:24 Last Admin: 02/22/18 00:28 Dose: 90 mg Hydromorphone HCl (Dilaudid) 0.5 mg IVPUSH ONETIME ONE Stop: 02/21/18 21:36 Last Admin: 02/21/18 21:44 Dose: 0.5 mg Ceftriaxone Sodium 2 gm/ (Sodium Chloride) 100 mls @ 100 mls/hr IV ONETIME ONE Stop: 02/22/18 01:10 Last Admin: 02/22/18 00:31 Dose: 100 mls/hr Iopamidol (Isovue-370 (76%)) 100 ml IVPUSH ONETIME ONE Stop: 02/21/18 23:07 Last Admin: 02/21/18 23:13 Dose: 100 ml Iopamidol (Isovue-370 (76%)) 25 ml IVPUSH ONETIME ONE Stop: 02/21/18 23:07 Last Admin: 02/21/18 23:13 Dose: 25 ml Ketorolac Tromethamine (Toradol) 30 mg IVPUSH ONETIME ONE Stop: 02/21/18 21:36 Last Admin: 02/21/18 21:44 Dose: 30 mg Ondansetron HCl (Zofran) 4 mg IVPUSH ONETIME ONE Stop: 02/21/18 21:36 Last Admin: 02/21/18 21:43 Dose: 4 mg - My Orders Last 24 Hours: My Active Orders 02/22/18 01:35 Promethazine [Phenergan] 25 mg PO Q4H PRN 02/22/18 01:38 LORazepam [Ativan] 2 mg IVPUSH Q4H PRN Metoprolol Tartrate [Lopressor] 5 mg IVPUSH Q4H PRN hydrALAZINE [Apresoline] 20 mg IVPUSH Q4H PRN 02/22/18 01:40 Height and Weight [RC] 04 Intake and Output [RC] 04,16 Oxygen Therapy [RC] PRN Up ad Erin [RC] ASDIRECTED VTE/DVT Education [RC] PER UNIT ROUTINE Vital Signs [RC] Q4HR Consult to Case Management [CONS] Routine Consult to Creative Services Writer [CONS] Routine Consult to Spiritual Care [CONS] Routine Respiratory Care Assess and Treatment [CONS] Routine Acetaminophen [Tylenol] 650 mg PO Q4H PRN Acetaminophen/HYDROcodone [[place] 325-5 MG] 1 tab PO Q4H PRN Albuterol/Ipratropium [DuoNeb 3.0-0.5 MG/3 ML] 3 ml NEB Q4H PRN Bisacodyl [Dulcolax] 5 mg PO DAILY PRN Docusate Sodium [Colace] 100 mg PO BID PRN Docusate Sodium/Sennosides [Senna Plus] 1 tab PO BID PRN HYDROmorphone [Dilaudid] 0.5 mg IVPUSH Q2H PRN LORazepam [Ativan] 1 mg IV Q6H PRN Ondansetron [Zofran] 4 mg IV Q4H PRN Polyethylene Glycol 3350 [MiraLAX] 17 gm PO DAILY PRN Promethazine [Phenergan] 12.5 mg Sodium Chloride 0.9% [Normal Saline] 50 ml IV Q6H Temazepam [Restoril] 15 mg PO BEDTIME PRN Resuscitation Status Routine 02/22/18 01:41 RT Aerosol Therapy [RC] ASDIRECTED 02/22/18 01:42 Incentive Spirometry [RT Incentive Spirometry] [RC] Q1HWA 02/22/18 01:43 Ambulate [RC] ASDIRECTED Benzonatate [Tessalon Perles] 200 mg PO TID PRN 02/22/18 01:45 Magnesium Rep Pharmacy to Dose [Pharmacy to Dose - Magnesium Replacement] 0 dose .XX ASDIRECTED PRN Potassium Rep Pharmacy to Dose [Pharmacy to Dose - Potassium Replacement] 0 dose .XX ASDIRECTED PRN 02/22/18 09:00 Apixaban [Eliquis] 10 mg PO BID Levofloxacin/Dextrose 5%-Water [Levaquin in D5W 750 MG/150 ML] 750 mg Premix Bag 1 bag IV Q24H 02/22/18 Breakfast Regular Diet [DIET] 02/23/18 05:11 Chest 1V Frontal [CR] AM BASIC METABOLIC PANEL,BMP [CHEM] AM C-REACTIVE PROTEIN [CHEM] AM CBC WITH AUTO DIFF [HEME] AM MAGNESIUM [CHEM] AM 02/24/18 05:11 BASIC METABOLIC PANEL,BMP [CHEM] AM C-REACTIVE PROTEIN [CHEM] AM CBC WITH AUTO DIFF [HEME] AM MAGNESIUM [CHEM] AM 02/25/18 05:11 BASIC METABOLIC PANEL,BMP [CHEM] AM C-REACTIVE PROTEIN [CHEM] AM CBC WITH AUTO DIFF [HEME] AM MAGNESIUM [CHEM] AM 02/26/18 05:11 BASIC METABOLIC PANEL,BMP [CHEM] AM C-REACTIVE PROTEIN [CHEM] AM CBC WITH AUTO DIFF [HEME] AM MAGNESIUM [CHEM] AM 03/01/18 09:00 Apixaban [Eliquis] 5 mg PO BID
[2018-02-22] MEDS: Apixaban 5 MG Tab PO SCH ×2 (09:58→21:36)
[2018-02-22] MEDS: Levofloxacin/Dextrose 5%-Water 750 MG in Premix Bag 1 BAG IV SCH (09:59)
[2018-02-22] MEDS ORDERED: HYDROmorphone 1 MG/ML Syringe IVPUSH PRN ×2 (15:16→15:24)
--- NOTE | 2018-02-22 17:42 | PCM.SN ---
- Free Text/Narrative Note: Patient seen and examined at bedside. Her WBC is now down to 10.99. Her CRP is 26.7. She is positive for mycoplasma pneumoniae. Her pain is not well controlled. She does not get any relief with norco but dilaudid. She carries 9/ 10 pain before dilaudid and after she gets it, her pain level drops down to at least 4/10. Her pain comfort usually last a few hours before she would asked for another dose. Plan: Scheduled long acting oxycodone and break through dilaudid to alternate with toradol. Will also add gabpentin BID for adjunct pain control and H2B to protect her stomach.
[2018-02-22] MEDS: Gabapentin 100 MG Cap PO SCH (17:57)
[2018-02-22] MEDS: Ketorolac 30 MG/ML SDV IVPUSH PRN (19:54)
[2018-02-22] MEDS: oxyCODONE ER 20 MG TAB.ER PO SCH ×3 (19:55→21:40)
[2018-02-22] MEDS: Ondansetron 4 MG/2 ML SDV IV PRN (19:55)
[2018-02-22] MEDS ORDERED: Saccharomyces Boulardii (Probiotic) 250 MG Cap PO ONE (21:00)
[2018-02-22] MEDS: Famotidine 20 MG Tab PO SCH (21:35)
[2018-02-23] MEDS: Sodium Chloride 0.9% 1,000 ML IV SCH ×3 (02:45→21:53)
[2018-02-23] MEDS: Ketorolac 30 MG/ML SDV IVPUSH PRN ×3 (03:45→17:59)
[2018-02-23] MEDS: Ondansetron 4 MG/2 ML SDV IV PRN ×2 (07:04→15:19)
--- NOTE | 2018-02-23 07:30 | CT ---
CT abdomen and pelvis Technique: Multiple axial sections were obtained from above the dome of the diaphragm inferiorly through the pubic symphysis. Intravenous contrast was utilized. Delayed images were obtained through the bladder. No oral contrast has been given. Findings: Focal consolidation is seen within a portion of the left lower lung. Liver shows no focal abnormality. Spleen appears within normal limits. Adrenal glands show no nodule. Pancreas is within normal limits. Gallbladder contains no calcified gallstones. Kidneys show symmetric contrast enhancement without hydronephrosis or mass. Aorta shows no aneurysmal dilatation. No retroperitoneal adenopathy or mesenteric abnormalities are seen. Enlarged uterus is noted. No pelvic mass or adenopathy is seen. Delayed images show contrast within the distal ureters and bladder. No free fluid or inflammatory change is seen. Bone window settings were reviewed which appear within normal limits for the patient's age. Impression: 1. Enlarged uterus. 2. Consolidation within a portion of the left lower lobe of the lung. 3. Nothing acute is appreciated on CT study of the abdomen and pelvis. Diagnostic code #2
--- NOTE | 2018-02-23 07:30 | CT ---
CT chest Technique: Multiple axial sections through the chest are obtained. Study has been performed as a pulmonary angiogram protocol. Intravenous contrast was therefore utilized. Findings: Pulmonary arteries are not optimally opacified. Preliminary report mentions a possible pulmonary embolism within the posterior medial left lung base. This may be artifact and is difficult to confirm due to slightly less than optimal pulmonary artery opacification. No other filling defects are seen to indicate pulmonary embolism within the main or segmental branches. No pericardial thickening is seen. Small portion of the visualized upper abdominal structures are within normal limits. Parenchymal density is noted with consolidation within portions of the left lower lung extending off the inferior left hilar region. This finding is most likely due to pneumonia. Lungs otherwise are clear. Bone window settings were reviewed which appear within normal limits for the patient's age. Impression: 1. Preliminary report mentions small filling defect raising the possibility of pulmonary embolism within the left base. Pulmonary arteries are not optimally opacified and difficult to confirm this impression. Repeat study could be considered to hopefully allow for better pulmonary artery opacification. 2. No other findings of pulmonary embolism. 3. Consolidation within a portion of the left lower lung most likely representing pneumonia. Diagnostic code #5 I mostly agree with preliminary report from [facility], finalized at 02/22/18, 1:00 AM Central Time
[2018-02-23] MEDS: Levofloxacin/Dextrose 5%-Water 750 MG in Premix Bag 1 BAG IV SCH (08:08)
[2018-02-23] MEDS: Apixaban 5 MG Tab PO SCH ×2 (08:09→21:01)
[2018-02-23] MEDS: Saccharomyces Boulardii (Probiotic) 250 MG Cap PO SCH (08:09)
[2018-02-23] MEDS: Famotidine 20 MG Tab PO SCH ×2 (08:10→21:02)
[2018-02-23] MEDS: oxyCODONE ER 20 MG TAB.ER PO SCH ×2 (08:10→21:02)
[2018-02-23] MEDS: Gabapentin 100 MG Cap PO SCH ×2 (08:10→21:01)
--- NOTE | 2018-02-23 08:35 | CR ---
Chest: Portable view of the chest was obtained. Comparison: Prior chest x-ray is not available, previous chest CT of 02/21/18. Heart size and mediastinum are normal for portable technique. Previously noted parenchymal density not well seen as it lies at retrocardiac location. Lungs otherwise are clear. Bony structures are unremarkable. Impression: 1. Previously noted parenchymal density with left base not well seen on current chest x-ray due to its retrocardiac location. 2. Nothing acute is otherwise seen. Diagnostic code #3
[2018-02-23] MEDS ORDERED: Magnesium Sulfate/Water 2 GM in Premix Bag 1 BAG IV ONE (12:00)
--- NOTE | 2018-02-23 12:56 | US ---
Bilateral lower extremity deep venous ultrasound: Duplex and color flow imaging was obtained of the right and left common femoral, proximal greater saphenous, superficial femoral, popliteal, posterior tibial and peroneal veins. Findings: Normal phasic flow, augmentation and compression is seen. Impression: 1. No evidence of deep venous thrombosis within either the right or left lower extremities. Diagnostic code #1
--- NOTE | 2018-02-23 14:35 | PCM.PN ---
<Pinky Shearer - Last Filed: 02/23/18 17:00> - General Info Date of Service: 02/23/18 Admission Dx/Problem (Free Text): Admission Diagnosis/Problem Admission Diagnosis/Problem Pulmonary embolism Pain Score: 5 - Review of Systems General: Reports: Fatigue. Denies: Fever HEENT: Reports: Headaches Pulmonary: Reports: Pleuritic Chest Pain. Denies: Shortness of Breath Cardiovascular: Reports: No Symptoms. Denies: Chest Pain Gastrointestinal: Reports: Nausea. Denies: Abdominal Pain, Diarrhea, Vomiting Genitourinary: Reports: No Symptoms Musculoskeletal: Reports: Shoulder Pain (left) Skin: Reports: No Symptoms Neurological: Reports: No Symptoms Psychiatric: Reports: No Symptoms Systems Review Comment:: Feeling tired after having echo. Still having some left shoulder pain, pleuritic chest pain, and nausea. Also reports recent onset of headache, which she thinks is due to her fatigue. Pain level 5/10 with pain meds. - Patient Data Vitals - Most Recent: Last Vital Signs Temp 98.1 F 02/23/18 08:08 Pulse 98 02/23/18 08:08 Resp 16 02/23/18 08:08 BP 104/63 02/23/18 08:08 Pulse Ox 95 02/23/18 08:08 Weight - Most Recent: 93.525 kg I&O - Last 24 Hours: Intake & Output 02/22/18 02/23/18 02/23/18 22:59 06:59 14:59 Intake Total 1590 1530 Output Total 800 700 Balance 790 830 Lab Results Last 24 Hours: Laboratory Results - last 24 hr 02/22/18 02/23/18 02/23/18 Range/Units 06:06 05:48 05:48 WBC 11.35 H (3.98-10.04) K/mm3 RBC 3.68 L (3.98-5.22) M/mm3 Hgb 10.0 L (11.2-15.7) gm/L Hct 31.2 L (34.1-44.9) % MCV 84.8 (79.4-94.8) fl MCH 27.2 (25.6-32.2) pg MCHC 32.1 L (32.2-35.5) g/dl RDW Std Deviation 42.0 (36.4-46.3) fL Plt Count 282 (182-369) K/mm3 MPV 10.9 (9.4-12.3) fl Neut % (Auto) 72.2 H (34.0-71.1) % Lymph % (Auto) 14.5 L (19.3-51.7) % [place] % (Auto) 12.2 (4.7-12.5) % Eos % (Auto) 0.5 L (0.7-5.8) Baso % (Auto) 0.2 (0.1-1.2) % Neut # (Auto) 8.19 H (1.56-6.13) K/mm3 Lymph # (Auto) 1.65 (1.18-3.74) K/mm3 [place] # (Auto) 1.38 H (0.24-0.36) K/mm3 Eos # (Auto) 0.06 (0.04-0.36) K/mm3 Baso # (Auto) 0.02 (0.01-0.08) K/mm3 Sodium 139 (136-145) mEq/L Potassium 3.8 (3.5-5.1) mEq/L Chloride 107 (98-107) mEq/L Carbon Dioxide 19 L (21-32) mEq/L Anion Gap 16.8 H (5-15) BUN 16 (7-18) mg/dL Creatinine 0.8 (0.55-1.02) mg/dL Est Cr Clr Drug Dosing 113.16 mL/min Estimated GFR (MDRD) > 60 (>60) mL/min BUN/Creatinine Ratio 20.0 H (14-18) Glucose 100 (74-106) mg/dL Calcium 8.3 L (8.5-10.1) mg/dL Magnesium 1.7 L (1.8-2.4) mg/dl C-Reactive Protein 31.0 H* (<1.0) mg/dL Mycoplasma pneumon IgM Positive H (NEGATIVE) [place] Results Last 24 Hours: Microbiology 02/22/18 18:50 Gram Stain - Final Sputum - Expectorated 02/22/18 00:30 Aerobic Blood Culture - Preliminary Blood - Venous - Lab Draw NO GROWTH AFTER 1 DAY Anaerobic Blood Culture - Preliminary NO GROWTH AFTER 1 DAY 02/22/18 00:25 Aerobic Blood Culture - Preliminary Blood - Venous NO GROWTH AFTER 1 DAY Anaerobic Blood Culture - Preliminary NO GROWTH AFTER 1 DAY Med Orders - Current: Current Medications Acetaminophen (Tylenol) 650 mg PO Q4H PRN PRN Reason: Pain (Mild 1-3)/fever Last Admin: 02/23/18 04:08 Dose: 650 mg Hydrocodone Bitart/Acetaminophen ([place] 325-5 Mg) 1 tab PO Q4H PRN PRN Reason: Pain (moderate 4-6) Last Admin: 02/22/18 17:27 Dose: 1 tab Albuterol/Ipratropium (Duoneb 3.0-0.5 Mg/3 Ml) 3 ml NEB Q4H PRN PRN Reason: Shortness Of Breath/wheezing Last Admin: 02/22/18 17:49 Dose: 3 ml Apixaban (Eliquis) 10 mg PO BID [facility] Stop: 02/28/18 21:01 Last Admin: 02/23/18 08:09 Dose: 10 mg Apixaban (Eliquis) 5 mg PO BID [facility] Benzonatate (Tessalon Perles) 200 mg PO TID PRN PRN Reason: Cough Bisacodyl (Dulcolax) 5 mg PO DAILY PRN PRN Reason: Constipation Docusate Sodium (Colace) 100 mg PO BID PRN PRN Reason: Constipation Famotidine (Pepcid) 20 mg PO BID [facility] Last Admin: 02/23/18 08:10 Dose: 20 mg Gabapentin (Neurontin) 200 mg PO BID [facility] Last Admin: 02/23/18 08:10 Dose: 200 mg Hydralazine HCl (Apresoline) 20 mg IVPUSH Q4H PRN PRN Reason: Hypertension Hydromorphone HCl (Dilaudid) 1 mg IVPUSH Q6H PRN PRN Reason: Pain Sodium Chloride (Normal Saline) 1,000 mls @ 100 mls/hr IV ASDIRECTED [facility] Last Admin: 02/23/18 12:03 Dose: 100 mls/hr Promethazine HCl 12.5 mg/ (Sodium Chloride) 50.5 mls @ 100 mls/hr IV Q6H PRN PRN Reason: Nausea/Vomiting Levofloxacin/Dextrose 750 mg/ (Premix) 150 mls @ 100 mls/hr IV Q24H [facility] Last Admin: 02/23/18 08:08 Dose: 100 mls/hr Ketorolac Tromethamine (Toradol) 30 mg IVPUSH Q6H PRN PRN Reason: Pain Last Admin: 02/23/18 12:03 Dose: 30 mg Lorazepam (Ativan) 2 mg IVPUSH Q4H PRN PRN Reason: Seizures Lorazepam (Ativan) 1 mg IV Q6H PRN PRN Reason: Anxiety Last Admin: 02/22/18 17:57 Dose: 1 mg Magnesium Sulfate (Pharmacy To Dose - Magnesium Replacement) 0 dose .XX ASDIRECTED PRN PRN Reason: RX TO WATCH MAG Metoprolol Tartrate (Lopressor) 5 mg IVPUSH Q4H PRN PRN Reason: Tachycardia Last Admin: 02/22/18 19:02 Dose: 5 mg Ondansetron HCl (Zofran) 4 mg IV Q4H PRN PRN Reason: Nausea/Vomiting Last Admin: 02/23/18 07:04 Dose: 4 mg Oxycodone HCl (Oxycontin) 20 mg PO Q12HR [facility] Last Admin: 02/23/18 08:10 Dose: 20 mg Polyethylene Glycol (Miralax) 17 gm PO DAILY PRN PRN Reason: Constipation Potassium Chloride (Pharmacy To Dose - Potassium Replacement) 0 dose .XX ASDIRECTED PRN PRN Reason: RX TO WATCH K Promethazine HCl (Phenergan) 25 mg PO Q4H PRN PRN Reason: Nausea Saccharomyces Boulardii (Florastor) 250 mg PO DAILY [facility] Last Admin: 02/23/18 08:09 Dose: 250 mg Senna/Docusate Sodium (Senna Plus) 1 tab PO BID [facility] Last Admin: 02/23/18 08:10 Dose: 1 tab Temazepam (Restoril) 15 mg PO BEDTIME PRN PRN Reason: Sleep Discontinued Medications Enoxaparin Sodium (Lovenox) 90 mg SUBCUT ONETIME ONE Stop: 02/22/18 00:24 Last Admin: 02/22/18 00:28 Dose: 90 mg Hydromorphone HCl (Dilaudid) 0.5 mg IVPUSH ONETIME ONE Stop: 02/21/18 21:36 Last Admin: 02/21/18 21:44 Dose: 0.5 mg Hydromorphone HCl (Dilaudid) 0.5 mg IVPUSH Q2H PRN PRN Reason: Pain (severe 7-10) Last Admin: 02/22/18 15:07 Dose: 0.5 mg Hydromorphone HCl (Dilaudid) 1 mg IVPUSH Q4H PRN PRN Reason: Pain Sodium Chloride (Normal Saline) 100 mls @ 4 mls/sec IV ASDIRECTED [facility] Last Admin: 02/21/18 23:21 Dose: 4 mls/sec Ceftriaxone Sodium 2 gm/ (Sodium Chloride) 100 mls @ 100 mls/hr IV ONETIME ONE Stop: 02/22/18 01:10 Last Admin: 02/22/18 00:31 Dose: 100 mls/hr Magnesium Sulfate 2 gm/ Premix 50 mls @ 25 mls/hr IV ONETIME ONE Stop: 02/23/18 13:59 Last Admin: 02/23/18 12:03 Dose: 25 mls/hr Iopamidol (Isovue-370 (76%)) 100 ml IVPUSH ONETIME ONE Stop: 02/21/18 23:07 Last Admin: 02/21/18 23:13 Dose: 100 ml Iopamidol (Isovue-370 (76%)) 25 ml IVPUSH ONETIME ONE Stop: 02/21/18 23:07 Last Admin: 02/21/18 23:13 Dose: 25 ml Ketorolac Tromethamine (Toradol) 30 mg IVPUSH ONETIME ONE Stop: 02/21/18 21:36 Last Admin: 02/21/18 21:44 Dose: 30 mg Ondansetron HCl (Zofran) 4 mg IVPUSH ONETIME ONE Stop: 02/21/18 21:36 Last Admin: 02/21/18 21:43 Dose: 4 mg Saccharomyces Boulardii (Florastor) 500 mg PO NOW ONE Stop: 02/22/18 21:01 Last Admin: 02/22/18 21:35 Dose: 500 mg Senna/Docusate Sodium (Senna Plus) 1 tab PO BID PRN PRN Reason: Constipation - Exam Quality Assessment: DVT Prophylaxis General: Alert, Oriented Lungs: Normal Respiratory Effort, Decreased Breath Sounds Cardiovascular: Regular Rate, Regular Rhythm GI/Abdominal Exam: Normal Bowel Sounds, Soft, Non-Tender (Female) Exam: Deferred Back Exam: Normal Inspection, Full Range of Motion Extremities: Normal Inspection, Normal Range of Motion, Non-Tender, No Pedal Edema Peripheral Pulses: 2+: Radial (L), Radial (R), Posterior Tibial (L), Posterior Tibial (R) Skin: Warm, Dry, Intact Neurological: No New Focal Deficit Psy/Mental Status: Alert, Normal Affect, Normal Mood - Problem List Review Problem List Initiated/Reviewed/Updated: Yes - Plan Plan:: Assessment/Plan: Acute: Pulmonary Embolus * Risk Factors * 6 days Post Vaginal Delivery - provoked etiology * No personal or family hx/o coagulopathic disorders, no Factor V Leiden Deficiency * No smoking or OCP * No recent prolonged travel, no active malignancy and she is not Obese * Chest CTA report * Occluded posterior medial basal segment pulmonary artery presumably from pulmonary embolus * Large amount of airspace disease in the segment which is suspected from pulmonary infarct * At the time of admission, she was hemodynamically stable - if she gets worse, we may need to send her to [place] * Initially received Lovenox subQ in ED; upon admission offered traditional and novel anticoagulation--> patient and her father selected Eliquis (coupon provided to father) * Elqiuis 2 tabs po BID for 7 days then 1 tab po there after * Patient states--> she "does not breast feed or pump"; ADVISED not to use mild while she is on blood thinner * 2D Echo today Left Sided Pneumonia * Chest CTA shows left lower lobe consolidation * Positive Mycoplasma pneumoniae IgM Ab; Negative Sputum Cx and Blood Cx * Fever of 102.6 in ER; now improved to 98.1 * She received IV Rocephin in ED; switched to IV Levaquin 750 mg daily with probiotic * Decongestant, Suppressant, Bronchodilators, Supplemental O2, Routine RT Care * FV/IS as directed * Serial CXR as indicated Pleuritic Pain * Previously not well-controlled - better with new regimen - pain level currently 5/10 * Long acting oxycodone and break through dilaudid to alternate with toradol * Gabpentin BID for adjunct pain control * H2B to protect her stomach Anemia * Hgb 10 and Hct 31.2 * Likely due to IV fluid dilution * Continue to monitor Hypomagnesemia * Mg of 1.7 * Inadequate intake * Replete and monitor Plan: Admit to [facility] with Tele Resume Home Meds Routine AM Labs Isolation precaution Stool Softener to prevent constipation 2D echo today Duplex U/S r/o DVT RT consult Advised not to bring in baby for now - ask accounting coordinator SW/CM for d/c planning Encourage to ambulate TID-QID and use IS/FV as directed Code status: full code Pinky Shearer, MS-3. Dr. Rosas has examined the patient and reviewed the note. <Johnathan Rosas T - Last Filed: 02/23/18 17:25> - Patient Data Vitals - Most Recent: Last Vital Signs Temp 36.6 C 02/23/18 16:09 Pulse 101 H 02/23/18 16:09 Resp 24 H 02/23/18 16:09 BP 112/50 L 02/23/18 16:09 Pulse Ox 99 02/23/18 16:09 I&O - Last 24 Hours: Intake & Output 02/23/18 02/23/18 02/23/18 06:59 14:59 22:59 Intake Total 1530 2024 Output Total 700 650 Balance 830 1374 Lab Results Last 24 Hours: Laboratory Results - last 24 hr 02/23/18 02/23/18 Range/Units 05:48 05:48 WBC 11.35 H (3.98-10.04) K/mm3 RBC 3.68 L (3.98-5.22) M/mm3 Hgb 10.0 L (11.2-15.7) gm/L Hct 31.2 L (34.1-44.9) % MCV 84.8 (79.4-94.8) fl MCH 27.2 (25.6-32.2) pg MCHC 32.1 L (32.2-35.5) g/dl RDW Std Deviation 42.0 (36.4-46.3) fL Plt Count 282 (182-369) K/mm3 MPV 10.9 (9.4-12.3) fl Neut % (Auto) 72.2 H (34.0-71.1) % Lymph % (Auto) 14.5 L (19.3-51.7) % [place] % (Auto) 12.2 (4.7-12.5) % Eos % (Auto) 0.5 L (0.7-5.8) Baso % (Auto) 0.2 (0.1-1.2) % Neut # (Auto) 8.19 H (1.56-6.13) K/mm3 Lymph # (Auto) 1.65 (1.18-3.74) K/mm3 [place] # (Auto) 1.38 H (0.24-0.36) K/mm3 Eos # (Auto) 0.06 (0.04-0.36) K/mm3 Baso # (Auto) 0.02 (0.01-0.08) K/mm3 Sodium 139 (136-145) mEq/L Potassium 3.8 (3.5-5.1) mEq/L Chloride 107 (98-107) mEq/L Carbon Dioxide 19 L (21-32) mEq/L Anion Gap 16.8 H (5-15) BUN 16 (7-18) mg/dL Creatinine 0.8 (0.55-1.02) mg/dL Est Cr Clr Drug Dosing 113.16 mL/min Estimated GFR (MDRD) > 60 (>60) mL/min BUN/Creatinine Ratio 20.0 H (14-18) Glucose 100 (74-106) mg/dL Calcium 8.3 L (8.5-10.1) mg/dL Magnesium 1.7 L (1.8-2.4) mg/dl C-Reactive Protein 31.0 H* (<1.0) mg/dL [place] Results Last 24 Hours: Microbiology 02/22/18 18:50 Gram Stain - Final Sputum - Expectorated 02/22/18 00:30 Aerobic Blood Culture - Preliminary Blood - Venous - Lab Draw NO GROWTH AFTER 1 DAY Anaerobic Blood Culture - Preliminary NO GROWTH AFTER 1 DAY 02/22/18 00:25 Aerobic Blood Culture - Preliminary Blood - Venous NO GROWTH AFTER 1 DAY Anaerobic Blood Culture - Preliminary NO GROWTH AFTER 1 DAY Med Orders - Current: Current Medications Acetaminophen (Tylenol) 650 mg PO Q4H PRN PRN Reason: Pain (Mild 1-3)/fever Last Admin: 02/23/18 04:08 Dose: 650 mg Hydrocodone Bitart/Acetaminophen ([place] 325-5 Mg) 1 tab PO Q4H PRN PRN Reason: Pain (moderate 4-6) Last Admin: 02/23/18 15:18 Dose: 1 tab Albuterol/Ipratropium (Duoneb 3.0-0.5 Mg/3 Ml) 3 ml NEB Q4H PRN PRN Reason: Shortness Of Breath/wheezing Last Admin: 02/22/18 17:49 Dose: 3 ml Apixaban (Eliquis) 10 mg PO BID [facility] Stop: 02/28/18 21:01 Last Admin: 02/23/18 08:09 Dose: 10 mg Apixaban (Eliquis) 5 mg PO BID [facility] Benzonatate (Tessalon Perles) 200 mg PO TID PRN PRN Reason: Cough Bisacodyl (Dulcolax) 5 mg PO DAILY PRN PRN Reason: Constipation Docusate Sodium (Colace) 100 mg PO BID PRN PRN Reason: Constipation Famotidine (Pepcid) 20 mg PO BID [facility] Last Admin: 02/23/18 08:10 Dose: 20 mg Gabapentin (Neurontin) 200 mg PO BID [facility] Last Admin: 02/23/18 08:10 Dose: 200 mg Hydralazine HCl (Apresoline) 20 mg IVPUSH Q4H PRN PRN Reason: Hypertension Hydromorphone HCl (Dilaudid) 1 mg IVPUSH Q6H PRN PRN Reason: Pain Sodium Chloride (Normal Saline) 1,000 mls @ 100 mls/hr IV ASDIRECTED [facility] Last Admin: 02/23/18 12:03 Dose: 100 mls/hr Promethazine HCl 12.5 mg/ (Sodium Chloride) 50.5 mls @ 100 mls/hr IV Q6H PRN PRN Reason: Nausea/Vomiting Levofloxacin/Dextrose 750 mg/ (Premix) 150 mls @ 100 mls/hr IV Q24H [facility] Last Admin: 02/23/18 08:08 Dose: 100 mls/hr Ketorolac Tromethamine (Toradol) 30 mg IVPUSH Q6H PRN PRN Reason: Pain Last Admin: 02/23/18 12:03 Dose: 30 mg Lorazepam (Ativan) 2 mg IVPUSH Q4H PRN PRN Reason: Seizures Lorazepam (Ativan) 1 mg IV Q6H PRN PRN Reason: Anxiety Last Admin: 02/22/18 17:57 Dose: 1 mg Magnesium Sulfate (Pharmacy To Dose - Magnesium Replacement) 0 dose .XX ASDIRECTED PRN PRN Reason: RX TO WATCH MAG Metoprolol Tartrate (Lopressor) 5 mg IVPUSH Q4H PRN PRN Reason: Tachycardia Last Admin: 02/22/18 19:02 Dose: 5 mg Ondansetron HCl (Zofran) 4 mg IV Q4H PRN PRN Reason: Nausea/Vomiting Last Admin: 02/23/18 15:19 Dose: 4 mg Oxycodone HCl (Oxycontin) 20 mg PO Q12HR [facility] Last Admin: 02/23/18 08:10 Dose: 20 mg Polyethylene Glycol (Miralax) 17 gm PO DAILY PRN PRN Reason: Constipation Potassium Chloride (Pharmacy To Dose - Potassium Replacement) 0 dose .XX ASDIRECTED PRN PRN Reason: RX TO WATCH K Promethazine HCl (Phenergan) 25 mg PO Q4H PRN PRN Reason: Nausea Saccharomyces Boulardii (Florastor) 250 mg PO DAILY [facility] Last Admin: 02/23/18 08:09 Dose: 250 mg Senna/Docusate Sodium (Senna Plus) 1 tab PO BID [facility] Last Admin: 02/23/18 08:10 Dose: 1 tab Temazepam (Restoril) 15 mg PO BEDTIME PRN PRN Reason: Sleep Discontinued Medications Enoxaparin Sodium (Lovenox) 90 mg SUBCUT ONETIME ONE Stop: 02/22/18 00:24 Last Admin: 02/22/18 00:28 Dose: 90 mg Hydromorphone HCl (Dilaudid) 0.5 mg IVPUSH ONETIME ONE Stop: 02/21/18 21:36 Last Admin: 02/21/18 21:44 Dose: 0.5 mg Hydromorphone HCl (Dilaudid) 0.5 mg IVPUSH Q2H PRN PRN Reason: Pain (severe 7-10) Last Admin: 02/22/18 15:07 Dose: 0.5 mg Hydromorphone HCl (Dilaudid) 1 mg IVPUSH Q4H PRN PRN Reason: Pain Sodium Chloride (Normal Saline) 100 mls @ 4 mls/sec IV ASDIRECTED [facility] Last Admin: 02/21/18 23:21 Dose: 4 mls/sec Ceftriaxone Sodium 2 gm/ (Sodium Chloride) 100 mls @ 100 mls/hr IV ONETIME ONE Stop: 02/22/18 01:10 Last Admin: 02/22/18 00:31 Dose: 100 mls/hr Magnesium Sulfate 2 gm/ Premix 50 mls @ 25 mls/hr IV ONETIME ONE Stop: 02/23/18 13:59 Last Admin: 02/23/18 12:03 Dose: 25 mls/hr Iopamidol (Isovue-370 (76%)) 100 ml IVPUSH ONETIME ONE Stop: 02/21/18 23:07 Last Admin: 02/21/18 23:13 Dose: 100 ml Iopamidol (Isovue-370 (76%)) 25 ml IVPUSH ONETIME ONE Stop: 02/21/18 23:07 Last Admin: 02/21/18 23:13 Dose: 25 ml Ketorolac Tromethamine (Toradol) 30 mg IVPUSH ONETIME ONE Stop: 02/21/18 21:36 Last Admin: 02/21/18 21:44 Dose: 30 mg Ondansetron HCl (Zofran) 4 mg IVPUSH ONETIME ONE Stop: 02/21/18 21:36 Last Admin: 02/21/18 21:43 Dose: 4 mg Saccharomyces Boulardii (Florastor) 500 mg PO NOW ONE Stop: 02/22/18 21:01 Last Admin: 02/22/18 21:35 Dose: 500 mg Senna/Docusate Sodium (Senna Plus) 1 tab PO BID PRN PRN Reason: Constipation - My Orders Last 24 Hours: My Active Orders 02/22/18 18:00 Gabapentin [Neurontin] 200 mg PO BID 02/22/18 18:50 CULTURE SPUTUM + SMEAR [RM] Routine 02/22/18 20:00 oxyCODONE ER [OxyCONTIN] 20 mg PO Q12HR 02/22/18 21:00 Docusate Sodium/Sennosides [Senna Plus] 1 tab PO BID Famotidine [Pepcid] 20 mg PO BID 02/23/18 09:00 Saccharomyces Boulardii [Florastor] 250 mg PO DAILY 02/24/18 05:11 BASIC METABOLIC PANEL,BMP [CHEM] AM C-REACTIVE PROTEIN [CHEM] AM CBC WITH AUTO DIFF [HEME] AM MAGNESIUM [CHEM] AM 02/25/18 05:11 BASIC METABOLIC PANEL,BMP [CHEM] AM C-REACTIVE PROTEIN [CHEM] AM CBC WITH AUTO DIFF [HEME] AM MAGNESIUM [CHEM] AM 02/26/18 05:11 BASIC METABOLIC PANEL,BMP [CHEM] AM C-REACTIVE PROTEIN [CHEM] AM CBC WITH AUTO DIFF [HEME] AM MAGNESIUM [CHEM] AM 03/01/18 09:00 Apixaban [Eliquis] 5 mg PO BID - Plan Plan:: Patient seen and examined at bedside in concert with the medical student. The assessment and plans were discussed and agreed upon with me. Patient looks clinically much better and her pain is more controlled. She was advised to call her Access Specialist for contact precaution when she goes home to be with her baby.
[2018-02-23] MEDS: Acetaminophen/HYDROcodone 325-5 MG Tab PO PRN (15:18)
--- NOTE | 2018-02-23 17:42 | PCM.SN ---
- Free Text/Narrative Note: Duplex ultrasound report reads no evidence of DVT within either the right or the left lower extremities.
[2018-02-24] MEDS: Ketorolac 30 MG/ML SDV IVPUSH PRN (00:17)
[2018-02-24] MEDS: Sodium Chloride 0.9% 1,000 ML IV SCH (08:09)
[2018-02-24] MEDS: Levofloxacin/Dextrose 5%-Water 750 MG in Premix Bag 1 BAG IV SCH (08:10)
[2018-02-24] MEDS: Saccharomyces Boulardii (Probiotic) 250 MG Cap PO SCH (08:13)
[2018-02-24] MEDS: oxyCODONE ER 20 MG TAB.ER PO SCH (08:13)
[2018-02-24] MEDS: Apixaban 5 MG Tab PO SCH (08:13)
[2018-02-24] MEDS: Gabapentin 100 MG Cap PO SCH (08:13)
[2018-02-24] MEDS: Famotidine 20 MG Tab PO SCH (08:14)
[2018-02-24] MEDS ORDERED: Magnesium Sulfate/Water 2 GM in Premix Bag 1 BAG IV ONE (09:00)
--- NOTE | 2018-02-24 10:58 | PCM.DCSUM1 ---
Discharge Summary - Hospital Course Brief History: This is a 22-year-old white female with no significant past medical history who presented to the emergency department on 02/21 with complains of left lower quadrant abdominal pain with radiation to the chest and into the shoulder that had progressively gotten worse through the evening. Her chief complaint is associated with shortness of breath along with pleuritic chest pain. She is status post day 6 vaginal delivery. Patient denies any sick contact. She denies having fever or chills. However on presentation to the emergency department she was found to have a temperature of 101.7. She did report some vaginal discharge but denies any unusual smell. She is not an active smoker. She denies alcohol or illicit drug use. Currently, she is not on control pills. She is also not breast-feeding or pumping milk for her baby. Her initial workup in the emergency department showed a CBC remarkable for WBC of 14.66, neutrophil count of 9.63, and monocyte count of 1.75. Her d- dimer is significantly elevated at 2.23.Her chemistry is significant for anion gap is 16.4, BUN of 26, alkaline phosphatase of 148, and albumin of 2.5. Her chest CTA report reads left lower lobe posterior medial basal segment pulmonary artery is occluded presumably from a pulmonary embolus.There is a left lower lobe consolidation. Large amount of airspace disease in the posterior medial basal segment of the left lower lobe. No pneumothorax, thoracic aneurysm, evidence of RV dysfunction, cardiomegaly and no significant pericardial effusion. Her abdominal and pelvis CT scan without contrast report reads no acute findings in the abdomen or pelvis. Patient received initial treatment in the emergency department for PE and Pneumonia before she was transferred to the floor for further management. Diagnosis: Stroke: No Modified Dearborn Scale: No Symptoms at All Modified Dearborn Scale Score: 0 - Discharge Data Discharge Date: 02/24/18 Discharge Disposition: Home, Self-Care 01 Condition: Good - Discharge Diagnosis/Problem(s) (1) Left lower lobe pneumonia SNOMED Code(s): 447446548 ICD Code: J18.1 - LOBAR PNEUMONIA, UNSPECIFIED ORGANISM Status: Acute Onset Date: ~02/21/18 Qualifiers: Pneumonia type: due to Mycoplasma pneumoniae Qualified Code(s): J15.7 - Pneumonia due to Mycoplasma pneumoniae (2) Pulmonary embolism SNOMED Code(s): 19122837 ICD Code: I26.99 - OTHER PULMONARY EMBOLISM WITHOUT ACUTE COR PULMONALE Status: Acute Onset Date: ~02/21/18 Qualifiers: Pulmonary embolism type: other Chronicity: acute Acute cor pulmonale presence: without acute cor pulmonale Qualified Code(s): I26.99 - Other pulmonary embolism without acute cor pulmonale (3) Pleuritic chest pain SNOMED Code(s): 9589407 ICD Code: R07.81 - PLEURODYNIA Status: Acute Onset Date: ~02/21/18 (4) Anemia SNOMED Code(s): 198561556 ICD Code: D64.9 - ANEMIA, UNSPECIFIED Status: Acute Onset Date: ~ (5) Hypomagnesemia SNOMED Code(s): 094193971 ICD Code: E83.42 - HYPOMAGNESEMIA Status: Acute Onset Date: ~02/22/18 - Patient Summary/Data Consults: Consultations 02/22/18 01:40 Consult to Case Management [CONS] Routine Consult to Chief Medical Director [CONS] Routine Consult to Spiritual Care [CONS] Routine Respiratory Care Assess and Treatment [CONS] Routine Hospital Course: Patient was admitted 02/22 for management of pulmonary embolism and pneumonia, as diagnosed by clinical presentation and supported by labs and CT in ER on . The PE was provoked due to her being in the state. She has no other personal or family risk factors. She was treated with IVF, eliquis, and levaquin. She was also given oxycodone for moderate pleuritic chest pain. She had a number of tests during her hospital stay. Duplex US was negative for DVT. 2D Echo showed no abnormalities. Blood culture was positive for mycoplasma pneumoniae IgM Ab. Initial treatment course was determined to be appropriate and was continued. Chest x-ray on 02/23 showed no abnormalities, indicating appropriate response to treatment. Temperature was 101.7 and WBC was 14.66 in the ER. Fever has resolved (now 98.4 ) and WBC count has improved (now 7.83). Anion gap, BUN, and BUN/Cr ratio were elevated upon admission but are now normalizing. She developed hypomagnesemia and anemia during her hospital stay, likely due to inadequate intake and IVF dilution, respectively. Labs and vitals have otherwise been within normal limits and stable. Pleuritic chest pain has persisted somewhat (5/10). Hospital course has otherwise been uncomplicated. - Patient Instructions Diet: Usual Diet as Tolerated Activity: As Tolerated Driving: May Drive Today Showering/Bathing: May Shower Notify Provider of: Fever, Increased Pain, Swelling and Redness - Discharge Plan *PRESCRIPTION DRUG MONITORING PROGRAM REVIEWED*: Not Applicable *COPY OF PRESCRIPTION DRUG MONITORING REPORT IN PATIENT MARYANN: Not Applicable Prescriptions/Med Rec: Acetaminophen/oxyCODONE [Percocet 325-7.5 MG] 1 tab PO Q8H PRN #16 tab PRN Reason: Pleuritic Pain Albuterol Sulfate [Proair Hfa] 8.5 gm IH Q4H PRN #1 hfa.aer.ad PRN Reason: SOB/Wheezing Apixaban [Eliquis] 5 mg PO ASDIRECTED #60 tablet Docusate Sodium [Colace] 50 mg PO BID #14 cap Levofloxacin [Levaquin] 750 mg PO DAILY #7 tablet Saccharomyces Boulardii [Florastor] 250 mg PO DAILY #7 cap Home Medications: Home Meds Promethazine [Phenergan] 25 mg PO Q6HR PRN 02/21/18 [History] Acetaminophen/oxyCODONE [Percocet 325-7.5 MG] 1 tab PO Q8H PRN #16 tab 02/24/18 [Rx] Albuterol Sulfate [Proair Hfa] 8.5 gm IH Q4H PRN #1 hfa.aer.ad 02/24/18 [Rx] Apixaban [Eliquis] 5 mg PO ASDIRECTED #60 tablet 02/24/18 [Rx] Docusate Sodium [Colace] 50 mg PO BID #14 cap 02/24/18 [Rx] Levofloxacin [Levaquin] 750 mg PO DAILY #7 tablet 02/24/18 [Rx] Saccharomyces Boulardii [Florastor] 250 mg PO DAILY #7 cap 02/24/18 [Rx] Patient Handouts: Pulmonary Embolism, Pleurodynia, Apixaban oral tablets, Community-Acquired Pneumonia, Adult, [id number] Referrals: Sherrie Moore MD [Primary Care Provider] - 03/05/18 10:45 am ( Please arrive 15 mins before the appointment.) - Discharge Summary/Plan Comment Discharge Summary/Plan Comment: Patient was treated with eliquis, levaquin, and oxycodone during hospital stay. She is to continue these medications at home. Upon discharge she is stable. She was educated on discharge instructions, including wearing mask and utilizing proper hand hygiene when around to prevent spread of infection. She is to follow up with PCP, Dr. Thacker, in 1 week. She was instructed to return if symptoms return or worsen. - General Info Date of Service: 02/24/18 Admission Dx/Problem (Free Text: Admission Diagnosis/Problem Admission Diagnosis/Problem Pulmonary embolism Functional Status: Reports: Tolerating Diet, Ambulating Numeric/FACES Score: 5 - Review of Systems General: Reports: Fatigue. Denies: Fever, Chills HEENT: Reports: Headaches Pulmonary: Reports: Pleuritic Chest Pain. Denies: Shortness of Breath, Cough Cardiovascular: Reports: No Symptoms Gastrointestinal: Reports: Nausea. Denies: Constipation, Diarrhea, Vomiting Genitourinary: Reports: No Symptoms Musculoskeletal: Reports: No Symptoms Skin: Reports: No Symptoms Neurological: Reports: No Symptoms Psychiatric: Reports: No Symptoms Systems Review Comment: Patient is doing well today. She is tired as she has not been sleeping well since her admission. She also reports mild, persistent headaches, which she believes are associated with her being tired. Still having nausea but no vomiting. Moderate left pleuritic chest pain, especially with movement and deep breathing. She ranks this pain as a 5/10. No other pain or symptoms otherwise. She is ambulating more often and tolerating diet. - Patient Data Vitals - Most Recent: Last Vital Signs Temp 98.2 F 02/24/18 08:06 Pulse 99 02/24/18 08:06 Resp 20 02/24/18 08:06 BP 124/76 02/24/18 08:06 Pulse Ox 96 02/24/18 08:06 Weight - Most Recent: 211 lb 4 oz I&O - Last 24 hours: Intake & Output 02/23/18 02/24/18 02/24/18 22:59 06:59 14:59 Intake Total 2324 1857 Output Total 650 1200 Balance 1674 657 Lab Results - Last 24 hrs: Laboratory Results - last 24 hr 02/24/18 02/24/18 Range/Units 06:27 06:27 WBC 7.83 (3.98-10.04) K/mm3 RBC 3.39 L (3.98-5.22) M/mm3 Hgb 9.2 L (11.2-15.7) gm/L Hct 29.0 L (34.1-44.9) % MCV 85.5 (79.4-94.8) fl MCH 27.1 (25.6-32.2) pg MCHC 31.7 L (32.2-35.5) g/dl RDW Std Deviation 42.3 (36.4-46.3) fL Plt Count 236 (182-369) K/mm3 MPV 10.7 (9.4-12.3) fl Neut % (Auto) 58.4 (34.0-71.1) % Lymph % (Auto) 27.6 (19.3-51.7) % Edgar % (Auto) 11.4 (4.7-12.5) % Eos % (Auto) 2.0 (0.7-5.8) Baso % (Auto) 0.3 (0.1-1.2) % Neut # (Auto) 4.58 (1.56-6.13) K/mm3 Lymph # (Auto) 2.16 (1.18-3.74) K/mm3 Edgar # (Auto) 0.89 H (0.24-0.36) K/mm3 Eos # (Auto) 0.16 (0.04-0.36) K/mm3 Baso # (Auto) 0.02 (0.01-0.08) K/mm3 Sodium 140 (136-145) mEq/L Potassium 4.2 (3.5-5.1) mEq/L Chloride 110 H (98-107) mEq/L Carbon Dioxide 22 (21-32) mEq/L Anion Gap 12.2 (5-15) BUN 16 (7-18) mg/dL Creatinine 0.7 (0.55-1.02) mg/dL Est Cr Clr Drug Dosing 129.32 mL/min Estimated GFR (MDRD) > 60 (>60) mL/min BUN/Creatinine Ratio 22.9 H (14-18) Glucose 91 (74-106) mg/dL Calcium 8.1 L (8.5-10.1) mg/dL Magnesium 1.7 L (1.8-2.4) mg/dl C-Reactive Protein 28.3 H* (<1.0) mg/dL GURMEET Results - Last 24 hrs: Microbiology 02/22/18 18:50 Gram Stain - Final Sputum - Expectorated Sputum Culture - Final Normal Kandis 02/22/18 10:13 Streptococcus pneumoniae Antigen (M - Final Urine 02/22/18 00:30 Aerobic Blood Culture - Preliminary Blood - Venous - Lab Draw NO GROWTH AFTER 2 DAYS Anaerobic Blood Culture - Preliminary NO GROWTH AFTER 2 DAYS 02/22/18 00:25 Aerobic Blood Culture - Preliminary Blood - Venous NO GROWTH AFTER 2 DAYS Anaerobic Blood Culture - Preliminary NO GROWTH AFTER 2 DAYS Med Orders - Current: Current Medications Acetaminophen (Tylenol) 650 mg PO Q4H PRN PRN Reason: Pain (Mild 1-3)/fever Last Admin: 02/23/18 04:08 Dose: 650 mg Hydrocodone Bitart/Acetaminophen (Handley 325-5 Mg) 1 tab PO Q4H PRN PRN Reason: Pain (moderate 4-6) Last Admin: 02/23/18 15:18 Dose: 1 tab Albuterol/Ipratropium (Duoneb 3.0-0.5 Mg/3 Ml) 3 ml NEB Q4H PRN PRN Reason: Shortness Of Breath/wheezing Last Admin: 02/22/18 17:49 Dose: 3 ml Apixaban (Eliquis) 10 mg PO BID [facility] Stop: 02/28/18 21:01 Last Admin: 02/24/18 08:13 Dose: 10 mg Apixaban (Eliquis) 5 mg PO BID [facility] Benzonatate (Tessalon Perles) 200 mg PO TID PRN PRN Reason: Cough Bisacodyl (Dulcolax) 5 mg PO DAILY PRN PRN Reason: Constipation Docusate Sodium (Colace) 100 mg PO BID PRN PRN Reason: Constipation Famotidine (Pepcid) 20 mg PO BID [facility] Last Admin: 02/24/18 08:14 Dose: 20 mg Gabapentin (Neurontin) 200 mg PO BID [facility] Last Admin: 02/24/18 08:13 Dose: 200 mg Hydralazine HCl (Apresoline) 20 mg IVPUSH Q4H PRN PRN Reason: Hypertension Hydromorphone HCl (Dilaudid) 1 mg IVPUSH Q6H PRN PRN Reason: Pain Sodium Chloride (Normal Saline) 1,000 mls @ 100 mls/hr IV ASDIRECTED [facility] Last Admin: 02/24/18 08:09 Dose: 100 mls/hr Promethazine HCl 12.5 mg/ (Sodium Chloride) 50.5 mls @ 100 mls/hr IV Q6H PRN PRN Reason: Nausea/Vomiting Levofloxacin/Dextrose 750 mg/ (Premix) 150 mls @ 100 mls/hr IV Q24H [facility] Last Admin: 02/24/18 08:10 Dose: 100 mls/hr Magnesium Sulfate 2 gm/ Premix 50 mls @ 25 mls/hr IV ONETIME ONE Stop: 02/24/18 10:59 Last Admin: 02/24/18 09:36 Dose: 25 mls/hr Ketorolac Tromethamine (Toradol) 30 mg IVPUSH Q6H PRN PRN Reason: Pain Last Admin: 02/24/18 00:17 Dose: 30 mg Lorazepam (Ativan) 2 mg IVPUSH Q4H PRN PRN Reason: Seizures Lorazepam (Ativan) 1 mg IV Q6H PRN PRN Reason: Anxiety Last Admin: 02/22/18 17:57 Dose: 1 mg Magnesium Sulfate (Pharmacy To Dose - Magnesium Replacement) 0 dose .XX ASDIRECTED PRN PRN Reason: RX TO WATCH MAG Metoprolol Tartrate (Lopressor) 5 mg IVPUSH Q4H PRN PRN Reason: Tachycardia Last Admin: 02/22/18 19:02 Dose: 5 mg Ondansetron HCl (Zofran) 4 mg IV Q4H PRN PRN Reason: Nausea/Vomiting Last Admin: 02/23/18 15:19 Dose: 4 mg Oxycodone HCl (Oxycontin) 20 mg PO Q12HR [facility] Last Admin: 02/24/18 08:13 Dose: 20 mg Polyethylene Glycol (Miralax) 17 gm PO DAILY PRN PRN Reason: Constipation Potassium Chloride (Pharmacy To Dose - Potassium Replacement) 0 dose .XX ASDIRECTED PRN PRN Reason: RX TO WATCH K Promethazine HCl (Phenergan) 25 mg PO Q4H PRN PRN Reason: Nausea Last Admin: 02/24/18 04:36 Dose: 25 mg Saccharomyces Boulardii (Florastor) 250 mg PO DAILY [facility] Last Admin: 02/24/18 08:13 Dose: 250 mg Senna/Docusate Sodium (Senna Plus) 1 tab PO BID [facility] Last Admin: 02/24/18 08:13 Dose: 1 tab Temazepam (Restoril) 15 mg PO BEDTIME PRN PRN Reason: Sleep Discontinued Medications Enoxaparin Sodium (Lovenox) 90 mg SUBCUT ONETIME ONE Stop: 02/22/18 00:24 Last Admin: 02/22/18 00:28 Dose: 90 mg Hydromorphone HCl (Dilaudid) 0.5 mg IVPUSH ONETIME ONE Stop: 02/21/18 21:36 Last Admin: 02/21/18 21:44 Dose: 0.5 mg Hydromorphone HCl (Dilaudid) 0.5 mg IVPUSH Q2H PRN PRN Reason: Pain (severe 7-10) Last Admin: 02/22/18 15:07 Dose: 0.5 mg Hydromorphone HCl (Dilaudid) 1 mg IVPUSH Q4H PRN PRN Reason: Pain Sodium Chloride (Normal Saline) 100 mls @ 4 mls/sec IV ASDIRECTED [facility] Last Admin: 02/21/18 23:21 Dose: 4 mls/sec Ceftriaxone Sodium 2 gm/ (Sodium Chloride) 100 mls @ 100 mls/hr IV ONETIME ONE Stop: 02/22/18 01:10 Last Admin: 02/22/18 00:31 Dose: 100 mls/hr Magnesium Sulfate 2 gm/ Premix 50 mls @ 25 mls/hr IV ONETIME ONE Stop: 02/23/18 13:59 Last Admin: 02/23/18 12:03 Dose: 25 mls/hr Iopamidol (Isovue-370 (76%)) 100 ml IVPUSH ONETIME ONE Stop: 02/21/18 23:07 Last Admin: 02/21/18 23:13 Dose: 100 ml Iopamidol (Isovue-370 (76%)) 25 ml IVPUSH ONETIME ONE Stop: 02/21/18 23:07 Last Admin: 02/21/18 23:13 Dose: 25 ml Ketorolac Tromethamine (Toradol) 30 mg IVPUSH ONETIME ONE Stop: 02/21/18 21:36 Last Admin: 02/21/18 21:44 Dose: 30 mg Ondansetron HCl (Zofran) 4 mg IVPUSH ONETIME ONE Stop: 02/21/18 21:36 Last Admin: 02/21/18 21:43 Dose: 4 mg Saccharomyces Boulardii (Florastor) 500 mg PO NOW ONE Stop: 02/22/18 21:01 Last Admin: 02/22/18 21:35 Dose: 500 mg Senna/Docusate Sodium (Senna Plus) 1 tab PO BID PRN PRN Reason: Constipation - Exam Quality Assessment: Reports: DVT Prophylaxis General: Reports: Alert, Oriented, Cooperative, Mild Distress (with deep breathing and movement) Neck: Reports: Supple, Trachea Midline Lungs: Reports: Clear to Auscultation, Normal Respiratory Effort Cardiovascular: Reports: Regular Rate, Regular Rhythm GI/Abdominal Exam: Normal Bowel Sounds, Soft, Non-Tender, No Distention (Female) Exam: Deferred Rectal (Female) Exam: Deferred Back Exam: Reports: Normal Inspection, Full Range of Motion Extremities: Normal Inspection, Normal Range of Motion, Non-Tender, No Pedal Edema Skin: Reports: Warm, Dry, Intact Wound/Incisions: Reports: Healing Well Neurological: Reports: No New Focal Deficit Psy/Mental Status: Reports: Alert Physical Findings Comments:: Patient appears well today. She is still in some pain and displays some distress while deep breathing and sitting up during the physical exam. No other abnormalities found upon exam. She feels ready to go home. Pinky Shearer, MS-3. Dr. Rosas has examined the patient and reviewed the plan.
[2018-02-24] MEDS: Acetaminophen/HYDROcodone 325-5 MG Tab PO PRN (11:55)
[2018-02-24 12:09] VITALS: BP 133/77
[2018-03-01] MEDS ORDERED: Apixaban 5 MG Tab PO SCH (09:00)
== END 2018-02-24 14:14 | disposition home or self-care (01) | DRG 776 ==
LOC: JD.ED 21:16 → JD.MS 02-22 01:42
PROVIDERS: ADMIT Internal Medicine; ATTEND Internal Medicine
DX: O88.23 Thromboembolism in the puerperium (principal); J15.7 Pneumonia due to Mycoplasma pneumoniae; O99.53 Diseases of the respiratory system complicating the puerperium; O90.81 Anemia of the puerperium; D64.9 Anemia, unspecified; O99.285 Endocrine, nutritional and metabolic diseases complicating the puerperium; E83.42 Hypomagnesemia
CPT/HCPCS: 36415; 71045; 71045-26; 71275; 71275-26; 74177; 74177-26; 80048; 80053; 81001; 83605; 83735; 85025; 85379; 86140; 86738; 87040; 87070; 87205; 87899; 93306; 93970; 93970-26; 94640; 94760; 96361; 96365; 96372; 96375; 99285; 99285-25; A9270-GY; J0696; J1170; J1650; J1885; J1956; J2060; J2405; J3475; J3490; J7030; J7040; J7620-GY; J8597; Q9967

== ENCOUNTER 2019-08-08 21:35 | Emergency (ER) | payer BC, MEDICAID ==
[2019-08-08 22:14] VITALS: BP 108/60; PULSE 63
[2019-08-08] MEDS ORDERED: Sodium Chloride 0.9% 1,000 ML IV ONE (22:27)
[2019-08-08] MEDS ORDERED: Ondansetron 4 MG/2 ML SDV IVPUSH ONE (22:27)
--- NOTE | 2019-08-09 00:38 | EDM.PDOC ---
ED HPI GENERAL MEDICAL PROBLEM - General Chief Complaint: Gastrointestinal Problem Stated Complaint: VOMITING Time Seen by Provider: 08/09/19 00:05 Source of Information: Reports: Patient, Family (Mother) History Limitations: Reports: No Limitations - History of Present Illness INITIAL COMMENTS - FREE TEXT/NARRATIVE: Ms. Jolly is a pleasant 23-year-old woman with a past medical history significant for pulmonary embolus, for which she received treatment for 1 year, who states that she has had nasal congestion and a sore throat for more than a month. She then developed a headache and vomiting on Friday afternoon, 2019. She also states that she developed a chemical smell and taste, that no one else can smell, on Friday. She has had a slight cough, but no dyspnea. No recent fever or chills. No recent constipation, diarrhea, urinary symptoms, or rashes. The patient denies eating any bad tasting or smelling food. No recent travel. No known similarly ill contacts. She states that she was started on an antibiotic, whose name she does not recall , for treatment of a possible knee infection, 7 days ago. She is supposed to take it twice a day, but dates that she has only taken a total of 3 tablets so far. She has also taken Tylenol and NyQuil. The patient's PCP is Dr. Sherrie Villa. She received an influenza vaccine this season. Headache Pain Score (Numeric/FACES): 10 Nose Pain Score (Numeric/FACES): 9 - Related Data Allergies Allergy/AdvReac Type Severity Reaction Status Date / Time No Known Allergies Allergy Verified 02/21/18 21:25 Home Meds: Home Meds Ondansetron [Zofran ODT] 1 tab PO Q8H PRN #10 tab.dis 08/09/19 [Rx] Past Medical History Respiratory History: Reports: PE : 1 Para: 1 Endocrine/Metabolic History: Reports: Obesity/BMI 30+ - Past Surgical History HEENT Surgical History: Reports: Adenoidectomy, Tonsillectomy Musculoskeletal Surgical History: Reports: Other (See Below) (Right clubfoot repair as a child) Social & Family History - Family History Family Medical History: Noncontributory - Tobacco Use Smoking Status *Q: Never Smoker - Caffeine Use Caffeine Use: Reports: Soda - Alcohol Use Alcohol Use History: No - Recreational Drug Use Recreational Drug Use: No - Living Situation & Occupation Living situation: Reports: Single, with Family (Parents, 2 brothers, son) 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 ED EXAM, GENERAL - Physical Exam Exam: See Below Exam Limited By: No Limitations General Appearance: Alert, WD/WN, No Apparent Distress Eye Exam: Bilateral Eye: EOMI, Normal Inspection Ears: Normal External Exam, Normal Canal, Hearing Grossly Normal, Normal TMs Nose: Normal Inspection, No Blood, Other (Left nasal mucosal edema, but normal on the right) Throat/Mouth: Normal Inspection, Normal Lips, Normal Teeth, Normal Gums, Normal Voice, No Airway Compromise, Other (Mild uvular swelling and a punctate ecchymosis, concerning for obstructive sleep apnea. Otherwise normal oropharynx. ) Head: Atraumatic, Normocephalic Neck: Normal Inspection, Supple, Non-Tender, Full Range of Motion. No: Lymphadenopathy (L), Lymphadenopathy (R) Respiratory/Chest: No Respiratory Distress, Lungs Clear, Normal Breath Sounds, No Accessory Muscle Use Cardiovascular: Normal Peripheral Pulses, Regular Rate, Rhythm, No Edema, No Gallop, No JVD, No Murmur, No Rub Peripheral Pulses: 4+: Radial (L), Radial (R) GI/Abdominal: Normal Bowel Sounds, Soft, Non-Tender, No Organomegaly, No Distention, No Abnormal Bruit, No Mass (Female) Exam: Deferred Rectal (Female) Exam: Deferred Back Exam: Normal Inspection, Full Range of Motion, NT Extremities: Normal Inspection, Normal Range of Motion, No Pedal Edema, Normal Capillary Refill Neurological: Alert, Oriented, Normal Cognition, No Motor/Sensory Deficits Psychiatric: Normal Affect Skin Exam: Warm, Dry, Intact, Normal Color, No Rash Course - Vital Signs Last Recorded V/S: Last Vital Signs Temp 36.6 C 08/08/19 22:12 Pulse 63 08/08/19 22:12 Resp 20 08/08/19 22:12 BP 108/60 08/08/19 22:12 Pulse Ox 98 08/08/19 22:12 - Orders/Labs/Meds Labs: Laboratory Tests 08/08/19 08/08/19 Range/Units 23:25 23:25 WBC 7.24 (3.98-10.04) K/mm3 RBC 4.26 (3.98-5.22) M/mm3 Hgb 11.9 D (11.2-15.7) gm/dl Hct 36.7 (34.1-44.9) % MCV 86.2 (79.4-94.8) fl MCH 27.9 (25.6-32.2) pg MCHC 32.4 (32.2-35.5) g/dl RDW Std Deviation 41.9 (36.4-46.3) fL Plt Count 166 L (182-369) K/mm3 MPV 11.7 (9.4-12.3) fl Neut % (Auto) 42.6 (34.0-71.1) % Lymph % (Auto) 44.2 (19.3-51.7) % [place] % (Auto) 7.5 (4.7-12.5) % Eos % (Auto) 5.0 (0.7-5.8) Baso % (Auto) 0.6 (0.1-1.2) % Neut # (Auto) 3.09 (1.56-6.13) K/mm3 Lymph # (Auto) 3.20 (1.18-3.74) K/mm3 [place] # (Auto) 0.54 H (0.24-0.36) K/mm3 Eos # (Auto) 0.36 (0.04-0.36) K/mm3 Baso # (Auto) 0.04 (0.01-0.08) K/mm3 Sodium 142 (136-145) mEq/L Potassium 3.8 (3.5-5.1) mEq/L Chloride 106 (98-107) mEq/L Carbon Dioxide 24 (21-32) mEq/L Anion Gap 15.8 H (5-15) BUN 14 (7-18) mg/dL Creatinine 0.7 (0.55-1.02) mg/dL Est Cr Clr Drug Dosing 137.48 mL/min Estimated GFR (MDRD) > 60 (>60) mL/min BUN/Creatinine Ratio 20.0 H (14-18) Glucose 100 (74-106) mg/dL Calcium 8.4 L (8.5-10.1) mg/dL Total Bilirubin 0.3 (0.2-1.0) mg/dL AST 12 L (15-37) U/L ALT 24 (14-59) U/L Alkaline Phosphatase 66 (46-116) U/L Total Protein 6.6 (6.4-8.2) g/dl Albumin 3.1 L (3.4-5.0) g/dl Globulin 3.5 gm/dL Albumin/Globulin Ratio 0.9 L (1-2) Meds: Medications Discontinued Medications Generic Name Dose Route Start Last Admin Trade Name Amisha PRN Reason Stop Dose Admin Sodium Chloride 1,000 mls @ 999 mls/hr 08/08/19 22:27 08/08/19 23:45 Normal Saline IV 08/08/19 23:27 999 mls/hr ONETIME ONE Administration Ondansetron HCl 4 mg 08/08/19 22:27 08/08/19 23:45 Zofran IVPUSH 08/08/19 22:28 4 mg ONETIME ONE Administration - Re-Assessments/Exams Free Text/Narrative Re-Assessment/Exam: 08/09/19 00:33 A CBC and CMP were ordered at triage. A urinalysis was also ordered, but the patient did not provide a urine sample, and she denied any urinary symptoms, therefore I canceled the order. The patient's CBC is entirely unremarkable. Her CMP is remarkable for an anion gap slightly elevated at 15.8, but with a normal bicarbonate. The remainder of her CMP is unremarkable. The patient appears to be suffering from a viral URI versus allergic rhinitis, and possible viral gastroenteritis. The ventricles me that she is experiencing is likely due to a postviral or factory dysfunction, versus nasal congestion. Her headache may be a sinus headache, and for this reason, I am recommending that she try a nasal decongestant, such as oxymetazoline, versus a nasal steroid spray, such as fluticasone or mometasone. With respect to the patient's nausea and vomiting, she received IV Zofran here in the ED, I will submit a prescription for the same. I will recommend dietary strategies. With respect to the patient's sore throat, I note that she has uvular swelling on examination, suggesting obstructive sleep apnea, and both the patient and her mother acknowledge that the patient sleeps. For this, I am recommending that she follow-up with her PCP to arrange for an outpatient sleep study. The patient requested a note for work for the next 2 days; I will provide one for today, but if she is unable to go to work tomorrow, she should see her PCP today. Departure - Departure Time of Disposition: 00:38 Disposition: Home, Self-Care 01 Condition: Good Clinical Impression: Viral URI, Viral gastroenteritis, Sore throat - Discharge Information *PRESCRIPTION DRUG MONITORING PROGRAM REVIEWED*: Not Applicable *COPY OF PRESCRIPTION DRUG MONITORING REPORT IN PATIENT MARYANN: Not Applicable Prescriptions: Ondansetron [Zofran ODT] 1 tab PO Q8H PRN #10 tab.dis PRN Reason: Nausea/Vomiting Instructions: Viral Gastroenteritis, Adult, [id number] Referrals: Sherrie Moore MD [Primary Care Provider] - Forms: ED Department Discharge, ED Return to Work/School Form Additional Instructions: You were seen in the emergency room for nasal congestion for more than one month , a sore throat for more than one month, vomiting since Friday, and a headache since Friday. Workup in the ER included a CBC and CMP, both of which were unremarkable. There is no suggestion of a bacterial infection, and there are no electrolyte abnormalities or dehydration. Based on your history, physical exam, and ER tests, your nasal congestion and headaches are most likely due to a viral URI versus allergic rhinitis. We recommend that you try an [id number] nasal decongestant, such as oxymetazoline, however, this should not be used for more than 5 days. Alternatively, you may try an [id number] nasal steroid spray, such as fluticasone (Flonase), or mometasone (Nasonex), as directed on the label. Your sore throat could also be due to a viral URI, however, it may also be due to obstructive sleep apnea. We recommend that you follow-up with your PCP, Dr. Sherrie Thacker, to arrange for outpatient sleep study. Your vomiting could also be due to a viral URI, versus viral gastroenteritis. You were given the anti-nausea medicine Zofran through your IV, and a prescription for oral Zofran has been sent to the [facility], [facility]. Dissolve one tablet of Zofran on your kind up to every 8 hours, as needed for nausea/vomiting. Stay adequately hydrated. Gatorade or Powerade are best, but so long as you do not have diarrhea, any fluid will do. If you are hungry, we recommend a bland diet, such as rice, oatmeal, or toes. Chicken noodle soup with saltine crackers is an excellent choice. If any other problems, please do not hesitate to return to the ER. Sepsis Event Note - Evaluation Sepsis Screening Result: No Definite Risk - Focused Exam Date Exam was Performed: 08/11/19 Time Exam was Performed: 16:39
== END 2019-08-09 00:58 | disposition home or self-care (01) ==
LOC: JD.ED 21:35
DX: J02.9 Acute pharyngitis, unspecified (principal); A08.4 Viral intestinal infection, unspecified; Z86.711 Personal history of pulmonary embolism
CPT/HCPCS: 36415; 80053; 85025; 96361; 96374; 99284; J2405; J7030

== ENCOUNTER 2022-02-06 19:36 | Emergency (ER) | payer BC, MEDICAID ==
[2022-02-06 20:10] VITALS: BP 115/74; PULSE 77
[2022-02-06] MEDS ORDERED: Ketorolac 15 MG/ML SDV IM ONE (22:39)
== END 2022-02-06 23:20 | disposition home or self-care (01) ==
LOC: JD.ED 19:36
DX: M79.604 Pain in right leg (principal); M79.605 Pain in left leg; E66.9 Obesity, unspecified; Z68.36 Body mass index [BMI] 36.0-36.9, adult; Z91.013 Allergy to seafood
CPT/HCPCS: 36415; 80053; 83735; 85025; 85379; 85610; 93970; 96372; 99284; J1885; 99283

== ENCOUNTER 2022-07-14 12:09 | Emergency (ER) | payer BC, MEDICAID ==
[2022-07-14] MEDS ORDERED: Sodium Chloride 0.9% 10 ML Syringe FLUSH PRN (12:27)
[2022-07-14] MEDS ORDERED: HYDROmorphone 1 MG/ML Syringe IVPUSH ONE ×2 (12:30→14:25)
[2022-07-14] MEDS ORDERED: Iopamidol 755 Mg/ML 100 ML Bottle IVPUSH ONE (13:02)
[2022-07-14] MEDS ORDERED: Sodium Chloride 0.9% 10 ML Syringe FLUSH ONE (13:02)
[2022-07-14] MEDS ORDERED: Sodium Chloride 0.9% 100 ML IV SCH (13:15)
[2022-07-14 16:58] VITALS: BP 108/75; PULSE 68
== END 2022-07-14 16:58 | disposition home or self-care (01) ==
LOC: JD.ED 12:09
DX: R07.89 Other chest pain (principal); E66.9 Obesity, unspecified; Z68.37 Body mass index [BMI] 37.0-37.9, adult; Z91.013 Allergy to seafood; Z79.899 Other long term (current) drug therapy
CPT/HCPCS: 36415; 71275; 80053; 84484; 85025; 85379; 93005; 93971; 96374; 96376; 99285; J1170; J3490; Q9967

== ENCOUNTER 2023-08-18 18:08 | Emergency (ER) | payer BC, MEDICAID ==
[2023-08-18] MEDS: diphenhydrAMINE 50 MG/ML SDV IVPUSH ONE (18:27)
[2023-08-18] MEDS: methylPREDNISolone Sodium Succinate 125 MG/2 ML SDV IVPUSH ONE (18:27)
[2023-08-18] MEDS: Famotidine 20 MG/2 ML SDV IVPUSH ONE (18:27)
[2023-08-18] MEDS: Albuterol/Ipratropium 3.0-0.5 MG/3 ML Neb Soln NEB ONE (18:32)
[2023-08-18] MEDS: Sodium Chloride 0.9% 500 ML IV ONE (18:47)
[2023-08-18 21:46] VITALS: BP 123/78; PULSE 86
== END 2023-08-18 20:23 | disposition home or self-care (01) ==
LOC: JD.ED 18:08
DX: T78.1XXA Other adverse food reactions, not elsewhere classified, initial encounter (principal); F17.210 Nicotine dependence, cigarettes, uncomplicated; E66.9 Obesity, unspecified; Z68.38 Body mass index [BMI] 38.0-38.9, adult; Z91.013 Allergy to seafood
CPT/HCPCS: 94640; 96374; 96375; 99284; J1200; J2930; J3490; J7030; J7620-GY